=== PATIENT | male | born 1945 | race African-American/Black ===

== ENCOUNTER 2020-01-28 14:48 | Inpatient (IN) | payer MEDICARE ==
[~2020-01-28] VITALS: Ht 172.7 cm; Wt 43.2 kg
[2020-01-28] MEDS ORDERED: ACETAMINOPHEN 325MG TABLET PO STA (15:15)
[2020-01-28] MEDS ORDERED: SODIUM CHLORIDE 0.9% 1,000 ML IV ONE (15:15)
[2020-01-28] MEDS ORDERED: LEVOFLOXACIN 500MG PREMIX 100 ML IV ONE (16:00)
[2020-01-28 16:23] LABS: BASOPHILS % 1.7 % (0.0-2.0); HEMATOCRIT. 24.9 % (42.0-52.0); LYMPHOCYTES % 19.2 % (20.0-50.0); MEAN CORPUSCULAR HEMOGLOBIN 34.8 pg (28.0-32.0); MEAN CORPUSCULAR VOLUME 107.9 fL (80.0-94.0); MEAN PLATELET VOLUME 9.2 fl (7.4-10.4); MONOCYTES % 14.8 % (2.0-8.0); NEUTROPHILS % 62.3 % (40.0-76.0); PLATELET 96 x1000/uL (130-400); RED BLOOD CELL COUNT 2.31 mill/uL (4.7-6.1); RED CELL DISTRIBUTION WIDTH 16.5 % (11.6-14.6)
[2020-01-28 16:30] LABS: CHLORIDE 133 mEq/L (98-107)
[2020-01-28] MEDS ORDERED: DEXTROSE 50% WATER 50ML SYRINGE IV ONE ×3 (16:30→16:45)
[2020-01-28 16:35] LABS: ETHANOL BLOOD < 10 mg/dL
[2020-01-28 16:36] LABS: C REACTIVE PROTEIN QUANT 2.6 mg/L (0.0-3.0)
[2020-01-28 16:39] LABS: CREATINE KINASE 387 IU/L (39-308)
[2020-01-28 16:42] LABS: D-DIMER 22.79 mg/L FEU (<0.50); INR 1.1
[2020-01-28] MEDS ORDERED: SODIUM BICARBONATE 8.4% 1 MEQ/ML 50ML SYR IV ONE (16:45)
[2020-01-28] MEDS ORDERED: CALCIUM CHLORIDE 1GM/10ML SYR IV ONE (16:45)
[2020-01-28] MEDS ORDERED: INSULIN REGULAR (HUMULIN R) 300UNITS/3ML IV ONE (16:45)
[2020-01-28 17:03] LABS: BG BASE EXCESS -19.5 mmol/L (-2.0-2.0); BG CARBOXYHEMOGLOBIN 0.3 % (0.5-1.5); BG DEOXYHEMOGLOBIN 4.4 % (0.0-5.0); BG FRACTION INSPIRED OXYGEN 21; BG HCO3 ACT 6.6 mmol/L (22.0-26.0); BG METHEMOGLOBIN 0.6 % (0.0-1.5); BG OXYGEN SATURATION 95.6 % (92.0-98.5); BG OXYHEMOGLOBIN 94.7 % (94.0-97.0); BG PCO2 17.1 mmHg (35.0-45.0); BG PH 7.203 (7.350-7.450); BG PO2 93.7 mmHg (75.0-100.0); BG SAMPLE SITE RIGHT RADIAL; BG TOTAL HEMOGLOBIN 8.1 g/dL (12.0-18.0); BG VENT MODE ROOM AIR
[2020-01-28] MEDS ORDERED: GUAIFENESIN 200MG/10ML SUGAR FREE UDC PO PRN (18:15)
[2020-01-28] MEDS ORDERED: DOCUSATE SODIUM 100MG CAPSULE PO PRN (18:15)
[2020-01-28] MEDS ORDERED: DIPHENHYDRAMINE 50MG/ML VIAL IV PRN (18:15)
[2020-01-28] MEDS ORDERED: MORPHINE SULFATE 2 MG/ML CPJ (NOT FOR IM USE) IV PRN (18:15)
[2020-01-28] MEDS ORDERED: IPRATROPIUM/ALBUTEROL 0.5-3(2.5)MG/3ML NEB HHN PRN (18:15)
[2020-01-28] MEDS ORDERED: ONDANSETRON HCL 4MG/2ML INJ IV PRN (18:15)
[2020-01-28] MEDS ORDERED: HYDROCODONE/ACETAMINOPHEN 10/325MG TABLET PO PRN (18:15)
[2020-01-28] MEDS ORDERED: MAGNESIUM/ALUMINUM HYDROXIDE/SIMETHICONE 30ML UDC PO PRN (18:15)
[2020-01-28] MEDS ORDERED: ACETAMINOPHEN 325MG TABLET PO PRN (18:15)
[2020-01-28] MEDS ORDERED: LORAZEPAM 2MG/ML CPJ IV PRN (18:15)
[2020-01-28] MEDS ORDERED: AZITHROMYCIN 500 MG in DEXT 5% WATER 250 ML IV SCH (19:00)
[2020-01-28] MEDS ORDERED: CEFTRIAXONE 1 G PREMIX 50 ML IV SCH (19:00)
[2020-01-28] MEDS: HYDRALAZINE 20MG/ML VIAL IV PRN (20:02)
[2020-01-28] MEDS: ENOXAPARIN 30MG/0.3ML SYR SUBCUT SCH (21:48)
[2020-01-28 21:59] LABS: CLARITY URINE CLEAR (CLEAR); COLOR URINE ORANGE (YELLOW); KETONES URINE NEGATIVE (NEGATIVE); LEUKOCYTE ESTERASE URINE TRACE (NEGATIVE); NITRITE URINE NEGATIVE (NEGATIVE); OCCULT BLOOD URINE 3+ (NEGATIVE); PH URINE 7.5 (4.5-8.0); PROTEIN URINE 3+ (NEGATIVE); SPECIFIC GRAVITY URINE 1.015 (1.005-1.030); UROBILINOGEN URINE 0.2 E.U./dL (0.2-1.0)
[2020-01-28] MEDS: SODIUM CHLORIDE 0.9% INJ 3ML FLUSH IVF SCH (22:23)
[2020-01-29] VITALS (84 sets, daily range): BP systolic 85–199; BP diastolic 38–170
[2020-01-29 05:55] LABS: BASOPHILS % 0.5 % (0.0-2.0); CHLORIDE 134 mEq/L (98-107); EOSINOPHILS % 0.2 % (0.0-5.0); HEMATOCRIT. 24.7 % (42.0-52.0); HEMOGLOBIN. 7.9 g/dL (14.0-18.0); LYMPHOCYTES % 10.5 % (20.0-50.0); MEAN CORPUSCULAR HEMOGLOBIN 34.9 pg (28.0-32.0); MEAN CORPUSCULAR VOLUME 109.1 fL (80.0-94.0); MEAN PLATELET VOLUME 9.3 fl (7.4-10.4); MONOCYTES % 13.9 % (2.0-8.0); NEUTROPHILS % 74.9 % (40.0-76.0); PLATELET 88 x1000/uL (130-400); RED BLOOD CELL COUNT 2.27 mill/uL (4.7-6.1); RED CELL DISTRIBUTION WIDTH 16.3 % (11.6-14.6)
[2020-01-29] MEDS: SODIUM CHLORIDE 0.9% INJ 3ML FLUSH IVF SCH ×3 (06:00→21:09)
[2020-01-29] MEDS ORDERED: ENOXAPARIN 30MG/0.3ML SYR SUBCUT SCH (09:00)
[2020-01-29 09:25] LABS: *AMPHETAMINES SCREEN URINE NEGATIVE (NEGATIVE); *BARBITURATES SCREEN URINE NEGATIVE (NEGATIVE); *BENZODIAZEPINES SCREEN URINE NEGATIVE (NEGATIVE)
[2020-01-29 09:26] LABS: *COCAINE SCREEN URINE NEGATIVE (NEGATIVE); CANNABINOID URINE SCREEN NEGATIVE (NEGATIVE); METHADONE URINE SCREEN NEGATIVE (NEGATIVE); OPIATES URINE SCREEN NEGATIVE (NEGATIVE); PHENCYCLIDINE URINE SCREEN NEGATIVE (NEGATIVE)
[2020-01-29] MEDS ORDERED: SODIUM BICARBONATE 100 MEQ in DEXTROSE 5% WATER 1,000 ML IV SCH (10:00)
[2020-01-29 10:49] LABS: CREATINE KINASE 553 IU/L (39-308)
[2020-01-29] MEDS: CEFTRIAXONE 1 G PREMIX 50 ML IV SCH (13:51)
[2020-01-29] MEDS ORDERED: AZITHROMYCIN 500 MG in DEXT 5% WATER 250 ML IV SCH (14:00)
[2020-01-29 14:21] LABS: CREATINE KINASE MB FRACTION 22.8 ng/mL (0.5-3.6); T4 FREE 1.04 ng/dL (0.76-1.46)
[2020-01-29] MEDS: ENOXAPARIN 30MG/0.3ML SYR SUBCUT SCH (21:09)
[2020-01-29 23:18] LABS: CREATINE KINASE MB FRACTION 17.1 ng/mL (0.5-3.6)
[2020-01-29] MEDS: CLONIDINE 0.1MG TABLET PO PRN (23:18)
[2020-01-30] VITALS (49 sets, daily range): BP systolic 103–190; BP diastolic 42–116
[2020-01-30] MEDS: HYDRALAZINE 20MG/ML VIAL IV PRN (02:18)
[2020-01-30 04:59] LABS: PHOSPHORUS 4.3 mg/dL (2.5-4.9)
[2020-01-30 05:04] LABS: CREATINE KINASE MB FRACTION 14.5 ng/mL (0.5-3.6)
[2020-01-30 05:17] LABS: MEAN CORPUSCULAR HEMOGLOBIN 35.3 pg (28.0-32.0); MEAN CORPUSCULAR VOLUME 104.2 fL (80.0-94.0); MEAN PLATELET VOLUME 9.9 fl (7.4-10.4); PLATELET 71 x1000/uL (130-400); RED BLOOD CELL COUNT 1.98 mill/uL (4.7-6.1); RED CELL DISTRIBUTION WIDTH 15.5 % (11.6-14.6)
[2020-01-30 05:24] LABS: HEMATOCRIT. 20.7 % (42.0-52.0)
[2020-01-30] MEDS: SODIUM CHLORIDE 0.9% INJ 3ML FLUSH IVF SCH ×3 (06:00→22:14)
[2020-01-30] MEDS ORDERED: KCL 10MEQ/50ML PREMIX 50 ML IV ONE (06:30)
[2020-01-30] MEDS ORDERED: MAGNESIUM 2 G PREMIX 50 ML IV ONE (06:30)
[2020-01-30] MEDS ORDERED: POTASSIUM CHLORIDE 20MEQ/PACKET PO NR (06:30)
[2020-01-30 07:13] LABS: NUCLEATED RED BLOOD CELLS 1 /100 WBC
[2020-01-30 07:14] LABS: PLATELET ESTIMATE DECREASED
[2020-01-30] MEDS ORDERED: MAGNESIUM 4 G PREMIX 100 ML IV NR (08:00)
[2020-01-30] MEDS: DEXT 5%/0.45% NACL 1000ML 1,000 ML IV SCH ×2 (08:37→22:15)
[2020-01-30] MEDS: THIAMINE HCL 100MG TABLET PO SCH (08:38)
[2020-01-30] MEDS: FOLIC ACID/VITAMIN B COMP W-C TABLET PO SCH (08:39)
[2020-01-30] MEDS: FOLIC ACID 1MG TABLET PO SCH (08:39)
[2020-01-30] MEDS: AZITHROMYCIN 500 MG TABLET PO SCH (08:48)
[2020-01-30] MEDS: CEFTRIAXONE 1 G PREMIX 50 ML IV SCH (18:29)
[2020-01-30 20:14] LABS: INR 1.1; PROTHROMBIN TIME 11.4 sec (9.6-11.0)
[2020-01-30] MEDS: ENOXAPARIN 30MG/0.3ML SYR SUBCUT SCH (21:00)
[2020-01-31] VITALS: BP 137/79
[2020-01-31 04:00] VITALS: BP 147/87
[2020-01-31] MEDS: SODIUM CHLORIDE 0.9% INJ 3ML FLUSH IVF SCH ×3 (06:14→21:53)
[2020-01-31 07:29] LABS: BASOPHILS % 0.3 % (0.0-2.0); EOSINOPHILS % 2.5 % (0.0-5.0); HEMATOCRIT. 24.6 % (42.0-52.0); HEMOGLOBIN. 8.4 g/dL (14.0-18.0); LYMPHOCYTES % 27.5 % (20.0-50.0); MEAN CORPUSCULAR HEMOGLOBIN 34.9 pg (28.0-32.0); MEAN CORPUSCULAR VOLUME 102.5 fL (80.0-94.0); MONOCYTES % 14.6 % (2.0-8.0); NEUTROPHILS % 55.1 % (40.0-76.0); PLATELET 77 x1000/uL (130-400); RED CELL DISTRIBUTION WIDTH 16.4 % (11.6-14.6)
[2020-01-31 08:00] VITALS: BP 166/91
[2020-01-31] MEDS: THIAMINE HCL 100MG TABLET PO SCH (09:06)
[2020-01-31] MEDS: AZITHROMYCIN 500 MG TABLET PO SCH (09:06)
[2020-01-31] MEDS: FOLIC ACID/VITAMIN B COMP W-C TABLET PO SCH (09:06)
[2020-01-31] MEDS: FOLIC ACID 1MG TABLET PO SCH (09:06)
[2020-01-31 12:00] VITALS: BP 151/66
[2020-01-31] MEDS: CEFTRIAXONE 1 G PREMIX 50 ML IV SCH (13:19)
[2020-01-31 14:11] LABS: ANTI-NUCLEAR ANTIBODIES DIRECT Negative (Negative)
[2020-01-31] MEDS: DEXT 5%/0.45% NACL 1000ML 1,000 ML IV SCH (14:36)
[2020-01-31 16:00] VITALS: BP 118/62
[2020-01-31 20:00] VITALS: BP 144/73
[2020-01-31 20:37] LABS: HEPATITIS B SURFACE AB < 3.1 mIU/mL
[2020-01-31 20:48] LABS: HEPATITIS B SURFACE ANTIGEN NEGATIVE
[2020-01-31] MEDS: ENOXAPARIN 30MG/0.3ML SYR SUBCUT SCH (21:00)
[2020-01-31 21:18] LABS: HEPATITIS A AB IGM NEGATIVE (NEGATIVE)
[2020-01-31] MEDS: EPOETIN ALFA 10000UNITS/ML VIAL SUBCUT SCH (21:53)
[2020-02-01] VITALS: BP 161/80
[2020-02-01] MEDS: CLONIDINE 0.1MG TABLET PO PRN (01:51)
[2020-02-01 04:00] VITALS: BP 154/81
[2020-02-01] MEDS: SODIUM CHLORIDE 0.9% INJ 3ML FLUSH IVF SCH ×3 (06:26→21:34)
[2020-02-01 07:30] LABS: HEMATOCRIT. 22.9 % (42.0-52.0); HEMOGLOBIN. 7.8 g/dL (14.0-18.0); MEAN CORPUSCULAR HEMOGLOBIN 34.7 pg (28.0-32.0); MEAN CORPUSCULAR VOLUME 101.6 fL (80.0-94.0); MEAN PLATELET VOLUME 9.6 fl (7.4-10.4); PLATELET 65 x1000/uL (130-400); RED BLOOD CELL COUNT 2.25 mill/uL (4.7-6.1); RED CELL DISTRIBUTION WIDTH 16.3 % (11.6-14.6)
[2020-02-01 08:00] VITALS: BP 158/75
[2020-02-01] MEDS: FOLIC ACID/VITAMIN B COMP W-C TABLET PO SCH (08:52)
[2020-02-01] MEDS: AZITHROMYCIN 500 MG TABLET PO SCH (08:52)
[2020-02-01] MEDS: FOLIC ACID 1MG TABLET PO SCH (08:52)
[2020-02-01] MEDS: DEXT 5%/0.45% NACL 1000ML 1,000 ML IV SCH (08:52)
[2020-02-01] MEDS: THIAMINE HCL 100MG TABLET PO SCH (08:52)
[2020-02-01 12:00] VITALS: BP 136/69
[2020-02-01 12:33] LABS: PLATELET ESTIMATE DECREASED
[2020-02-01] MEDS: CEFTRIAXONE 1 G PREMIX 50 ML IV SCH (12:36)
[2020-02-01 16:00] VITALS: BP 147/75
[2020-02-01 20:00] VITALS: BP 136/73
[2020-02-01] MEDS: ENOXAPARIN 30MG/0.3ML SYR SUBCUT SCH (20:22)
[2020-02-02] VITALS: BP 148/79
[2020-02-02 04:00] VITALS: BP 171/93
[2020-02-02] MEDS: DEXT 5%/0.45% NACL 1000ML 1,000 ML IV SCH ×2 (04:05→17:38)
[2020-02-02] MEDS: SODIUM CHLORIDE 0.9% INJ 3ML FLUSH IVF SCH ×3 (06:18→20:38)
[2020-02-02 06:50] LABS: HEMATOCRIT. 23.1 % (42.0-52.0); HEMOGLOBIN. 7.9 g/dL (14.0-18.0); MEAN CORPUSCULAR HEMOGLOBIN 34.9 pg (28.0-32.0); MEAN CORPUSCULAR VOLUME 102.6 fL (80.0-94.0); MEAN PLATELET VOLUME 9.5 fl (7.4-10.4); PLATELET 81 x1000/uL (130-400); RED BLOOD CELL COUNT 2.25 mill/uL (4.7-6.1); RED CELL DISTRIBUTION WIDTH 15.6 % (11.6-14.6)
[2020-02-02 08:00] VITALS: BP 152/58
[2020-02-02] MEDS: THIAMINE HCL 100MG TABLET PO SCH (09:01)
[2020-02-02] MEDS: AZITHROMYCIN 500 MG TABLET PO SCH (09:01)
[2020-02-02] MEDS: FOLIC ACID 1MG TABLET PO SCH (09:01)
[2020-02-02] MEDS: FOLIC ACID/VITAMIN B COMP W-C TABLET PO SCH (09:01)
[2020-02-02 12:00] VITALS: BP 140/68
[2020-02-02 13:10] LABS: PLATELET ESTIMATE DECREASED
[2020-02-02] MEDS: CEFTRIAXONE 1 G PREMIX 50 ML IV SCH (13:17)
[2020-02-02 16:00] VITALS: BP 150/92
[2020-02-02] MEDS: LOSARTAN POTASSIUM 25 MG TABLET PO SCH (17:38)
[2020-02-02 20:00] VITALS: BP 163/79
[2020-02-02] MEDS: CARVEDILOL 3.125 MG TABLET PO SCH (20:37)
[2020-02-02] MEDS: ENOXAPARIN 30MG/0.3ML SYR SUBCUT SCH (20:38)
[2020-02-03] VITALS (13 sets, daily range): BP systolic 114–187; BP diastolic 60–100
[2020-02-03] MEDS: DEXT 5%/0.45% NACL 1000ML 1,000 ML IV SCH (04:45)
[2020-02-03] MEDS: SODIUM CHLORIDE 0.9% INJ 3ML FLUSH IVF SCH ×3 (06:17→22:17)
[2020-02-03 06:43] LABS: HEMATOCRIT. 25.3 % (42.0-52.0); HEMOGLOBIN. 8.6 g/dL (14.0-18.0); MEAN CORPUSCULAR VOLUME 102.9 fL (80.0-94.0); MEAN PLATELET VOLUME 9.6 fl (7.4-10.4); PLATELET 99 x1000/uL (130-400); RED BLOOD CELL COUNT 2.46 mill/uL (4.7-6.1); RED CELL DISTRIBUTION WIDTH 15.5 % (11.6-14.6)
[2020-02-03] MEDS ORDERED: LIDOCAINE HCL 1% 20ML VIAL (Pyxis) INJ ONE (08:07)
[2020-02-03] MEDS ORDERED: SODIUM BICARBONATE 4% (2.4MEQ) 5ML VIAL IV ONE (08:07)
[2020-02-03] MEDS ORDERED: FENTANYL CITRATE/PF 50MCG/ML 2ML VIAL ONE (08:29)
[2020-02-03] MEDS: THIAMINE HCL 100MG TABLET PO SCH (10:42)
[2020-02-03] MEDS: FOLIC ACID/VITAMIN B COMP W-C TABLET PO SCH (10:42)
[2020-02-03] MEDS: FOLIC ACID 1MG TABLET PO SCH (10:42)
[2020-02-03] MEDS: CARVEDILOL 3.125 MG TABLET PO SCH ×2 (10:43→22:14)
[2020-02-03] MEDS: LOSARTAN POTASSIUM 25 MG TABLET PO SCH (10:43)
[2020-02-03] MEDS ORDERED: HEPARIN SODIUM 1,000 UNIT/1ML VIAL IV NR (11:45)
[2020-02-03 14:04] LABS: PLATELET ESTIMATE DECREASED
[2020-02-03] MEDS: ENOXAPARIN 30MG/0.3ML SYR SUBCUT SCH (21:00)
[2020-02-03] MEDS: EPOETIN ALFA 10000UNITS/ML VIAL SUBCUT SCH (22:17)
[2020-02-04] VITALS: BP 156/79
[2020-02-04] MEDS: DEXT 5%/0.45% NACL 1000ML 1,000 ML IV SCH ×2 (03:37→20:43)
[2020-02-04 04:00] VITALS: BP 172/92
[2020-02-04 06:59] LABS: HEMATOCRIT. 23.9 % (42.0-52.0); HEMOGLOBIN. 8.1 g/dL (14.0-18.0); MEAN CORPUSCULAR HEMOGLOBIN 35.1 pg (28.0-32.0); MEAN CORPUSCULAR VOLUME 103.9 fL (80.0-94.0); MEAN PLATELET VOLUME 9.2 fl (7.4-10.4); PLATELET 87 x1000/uL (130-400); RED CELL DISTRIBUTION WIDTH 15.7 % (11.6-14.6)
[2020-02-04 08:00] VITALS: BP 189/103
[2020-02-04] MEDS: FOLIC ACID/VITAMIN B COMP W-C TABLET PO SCH (09:06)
[2020-02-04] MEDS: CARVEDILOL 3.125 MG TABLET PO SCH ×2 (09:06→20:43)
[2020-02-04] MEDS: THIAMINE HCL 100MG TABLET PO SCH (09:07)
[2020-02-04] MEDS: FOLIC ACID 1MG TABLET PO SCH (09:07)
[2020-02-04] MEDS: LOSARTAN POTASSIUM 50 MG TABLET PO SCH (09:10)
[2020-02-04 11:50] LABS: PLATELET ESTIMATE DECREASED
[2020-02-04 11:53] VITALS: BP 163/75
[2020-02-04] MEDS: SODIUM CHLORIDE 0.9% INJ 3ML FLUSH IVF SCH ×2 (13:00→22:11)
[2020-02-04 16:00] VITALS: BP 153/66
[2020-02-04 20:00] VITALS: BP 150/74
[2020-02-04] MEDS: ENOXAPARIN 30MG/0.3ML SYR SUBCUT SCH (20:46)
[2020-02-05] VITALS: BP 169/90
[2020-02-05 04:00] VITALS: BP 147/80
[2020-02-05] MEDS: SODIUM CHLORIDE 0.9% INJ 3ML FLUSH IVF SCH ×2 (05:43→14:46)
[2020-02-05 07:10] LABS: HEMATOCRIT. 21.7 % (42.0-52.0); HEMOGLOBIN. 7.3 g/dL (14.0-18.0); MEAN CORPUSCULAR HEMOGLOBIN 34.9 pg (28.0-32.0); MEAN CORPUSCULAR VOLUME 103.8 fL (80.0-94.0); MEAN PLATELET VOLUME 9.8 fl (7.4-10.4); PLATELET 100 x1000/uL (130-400); RED BLOOD CELL COUNT 2.09 mill/uL (4.7-6.1); RED CELL DISTRIBUTION WIDTH 15.9 % (11.6-14.6)
[2020-02-05 08:00] VITALS: BP 193/107
[2020-02-05] MEDS: FOLIC ACID/VITAMIN B COMP W-C TABLET PO SCH (08:31)
[2020-02-05] MEDS: FOLIC ACID 1MG TABLET PO SCH (08:31)
[2020-02-05] MEDS: THIAMINE HCL 100MG TABLET PO SCH (08:31)
[2020-02-05] MEDS: CARVEDILOL 3.125 MG TABLET PO SCH (09:00)
[2020-02-05] MEDS: LOSARTAN POTASSIUM 50 MG TABLET PO SCH (09:00)
[2020-02-05 12:00] VITALS: BP_SYST 139; BP_SYST 169; BP_DIAS 73; BP_DIAS 87
[2020-02-05 14:24] LABS: PLATELET ESTIMATE SLIGHTLY DECREASED
[2020-02-05] MEDS: DEXT 5%/0.45% NACL 1000ML 1,000 ML IV SCH (14:49)
[2020-02-05 16:00] VITALS: BP 156/66
[2020-02-05] MEDS: HYDRALAZINE 20MG/ML VIAL IV PRN (16:35)
[2020-02-05 17:00] VITALS: BP 156/66
== END 2020-02-05 19:56 | DRG 871 ==
LOC: ER 14:48 → MICUSO 16:47 → EDBEDREQ 16:50 → EDBEDREQSVC 16:50 → MICUSO 01-29 01:45 → 8WST 01-30 12:25
PROVIDERS: ADMIT Internal Medicine; ATTEND Internal Medicine
PROC: 06H033Z Insertion of Infusion Device into Inferior Vena Cava, Percutaneous Approach (ICD-10-PCS; principal; 2020-01-28)
PROC: B549ZZA Ultrasonography of Inferior Vena Cava, Guidance (ICD-10-PCS; 2020-01-28)
PROC: 5A1D70Z Performance of Urinary Filtration, Intermittent, Less than 6 Hours Per Day (ICD-10-PCS; 2020-01-28)
PROC: 5A1D70Z Performance of Urinary Filtration, Intermittent, Less than 6 Hours Per Day (ICD-10-PCS; 2020-01-29)
PROC: 30233N1 Transfusion of Nonautologous Red Blood Cells into Peripheral Vein, Percutaneous Approach (ICD-10-PCS; 2020-01-30)
PROC: 5A1D70Z Performance of Urinary Filtration, Intermittent, Less than 6 Hours Per Day (ICD-10-PCS; 2020-01-31)
PROC: 0JH63XZ Insertion of Tunneled Vascular Access Device into Chest Subcutaneous Tissue and Fascia, Percutaneous Approach (ICD-10-PCS; 2020-02-03)
PROC: 02HV33Z Insertion of Infusion Device into Superior Vena Cava, Percutaneous Approach (ICD-10-PCS; 2020-02-03)
PROC: B518ZZA Fluoroscopy of Superior Vena Cava, Guidance (ICD-10-PCS; 2020-02-03)
PROC: B548ZZA Ultrasonography of Superior Vena Cava, Guidance (ICD-10-PCS; 2020-02-03)
PROC: 5A1D70Z Performance of Urinary Filtration, Intermittent, Less than 6 Hours Per Day (ICD-10-PCS; 2020-02-03)
PROC: 5A1D70Z Performance of Urinary Filtration, Intermittent, Less than 6 Hours Per Day (ICD-10-PCS; 2020-02-05)
DX: A41.9 Sepsis, unspecified organism (principal); J96.00 Acute respiratory failure, unspecified whether with hypoxia or hypercapnia; J18.9 Pneumonia, unspecified organism; T67.01XA Heatstroke and sunstroke, initial encounter; E46 Unspecified protein-calorie malnutrition; D61.818 Other pancytopenia; E87.0 Hyperosmolality and hypernatremia; G93.40 Encephalopathy, unspecified; Z68.1 Body mass index [BMI] 19.9 or less, adult; E87.1 Hypo-osmolality and hyponatremia; N17.9 Acute kidney failure, unspecified; E87.5 Hyperkalemia; R32 Unspecified urinary incontinence; E83.51 Hypocalcemia; R31.9 Hematuria, unspecified; L89.226 Pressure-induced deep tissue damage of left hip; D64.9 Anemia, unspecified; X58.XXXA Exposure to other specified factors, initial encounter; I51.7 Cardiomegaly; I12.9 Hypertensive chronic kidney disease with stage 1 through stage 4 chronic kidney disease, or unspecified chronic kidney disease; N18.9 Chronic kidney disease, unspecified; R15.9 Full incontinence of feces; Z03.818 Encounter for observation for suspected exposure to other biological agents ruled out; X30.XXXA Exposure to excessive natural heat, initial encounter; Y93.89 Activity, other specified; Y92.89 Other specified places as the place of occurrence of the external cause; Y99.8 Other external cause status
CPT/HCPCS: 36415; 36558; 36589; 36600; 70551; 71045; 76937; 77001; 80048; 80053; 80061; 80305; 80320; 81003; 82270; 82375; 82550; 82553; 82570; 82728; 82805; 82962; 83036; 83605; 83615; 83735; 83880; 84100; 84145; 84156; 84439; 84443; 84484; 85014; 85018; 85025; 85049; 85379; 85384; 86038; 86140; 86160; 86705; 86706; 86709; 86803; 86850; 86900; 86920; 87340; 93005; 93306; 97116; 97162; 97165; 99291; C1750; C1752; C1769; J0360; J0456; J0696; J0885; J1642; J1644; J1650; J1815; J1956; J3010; J3475; J3490; J7030; J7060; J7070; P9016; G0480; U0003-CS

== ENCOUNTER 2020-02-05 19:50 | Inpatient (IN) | payer MEDICARE ==
[~2020-02-05] VITALS: Ht 172.7 cm; Wt 43.7 kg
[2020-02-05 19:50] VITALS: BP 156/72
[2020-02-05 20:00] VITALS: BP_SYST 118; BP_SYST 156; BP_DIAS 75; BP_DIAS 84
[2020-02-05] MEDS ORDERED: ONDANSETRON HCL 4MG/2ML INJ IV PRN (21:30)
[2020-02-05] MEDS ORDERED: MAGNESIUM/ALUMINUM HYDROXIDE/SIMETHICONE 30ML UDC PO PRN (21:30)
[2020-02-05] MEDS ORDERED: GUAIFENESIN 200MG/10ML SUGAR FREE UDC PO PRN (21:30)
[2020-02-05] MEDS ORDERED: IPRATROPIUM/ALBUTEROL 0.5-3(2.5)MG/3ML NEB HHN PRN (21:30)
[2020-02-05] MEDS ORDERED: CLONIDINE 0.1MG TABLET PO PRN (21:30)
[2020-02-05] MEDS ORDERED: DOCUSATE SODIUM 100MG CAPSULE PO PRN (21:30)
[2020-02-05] MEDS ORDERED: ACETAMINOPHEN 325MG TABLET PO PRN (21:30)
[2020-02-05] MEDS ORDERED: HYDRALAZINE 20MG/ML VIAL IV PRN ×2 (21:30→22:30)
[2020-02-05] MEDS ORDERED: DIPHENHYDRAMINE 50MG/ML VIAL IV PRN ×2 (21:30→22:30)
[2020-02-06] MEDS: EPOETIN ALFA 10000UNITS/ML VIAL SUBCUT SCH (00:28)
[2020-02-06] MEDS: DEXT 5%/0.45% NACL 1000ML 1,000 ML IV SCH ×2 (00:28→15:10)
[2020-02-06] MEDS: SODIUM CHLORIDE 0.9% INJ 3ML FLUSH IVF SCH ×3 (06:38→21:22)
[2020-02-06 08:00] VITALS: BP 187/106
[2020-02-06 08:36] LABS: HEMATOCRIT. 22.4 % (42.0-52.0); HEMOGLOBIN. 7.5 g/dL (14.0-18.0); MEAN CORPUSCULAR VOLUME 104.5 fL (80.0-94.0); MEAN PLATELET VOLUME 9.8 fl (7.4-10.4); PLATELET 99 x1000/uL (130-400); RED BLOOD CELL COUNT 2.15 mill/uL (4.7-6.1); RED CELL DISTRIBUTION WIDTH 15.8 % (11.6-14.6)
[2020-02-06] MEDS: ENOXAPARIN 30MG/0.3ML SYR SUBCUT SCH (09:00)
[2020-02-06] MEDS: FOLIC ACID/VITAMIN B COMP W-C TABLET PO SCH (09:21)
[2020-02-06] MEDS: THIAMINE HCL 100MG TABLET PO SCH (09:21)
[2020-02-06] MEDS: FOLIC ACID 1MG TABLET PO SCH (09:22)
[2020-02-06] MEDS: DOCUSATE SODIUM 100MG CAPSULE PO SCH ×2 (09:22→18:31)
[2020-02-06] MEDS: LOSARTAN POTASSIUM 50 MG TABLET PO SCH (09:22)
[2020-02-06] MEDS: CARVEDILOL 3.125 MG TABLET PO SCH ×2 (09:23→21:21)
[2020-02-06 10:20] VITALS: BP 161/90
[2020-02-06] MEDS: HYDRALAZINE HCL 50MG TABLET PO SCH ×3 (10:20→23:42)
[2020-02-06 12:54] LABS: PLATELET ESTIMATE DECREASED
[2020-02-06 18:33] VITALS: BP 177/75
[2020-02-06 20:00] VITALS: BP 138/63
[2020-02-07] MEDS: HYDRALAZINE HCL 50MG TABLET PO SCH ×3 (05:36→21:14)
[2020-02-07] MEDS: SODIUM CHLORIDE 0.9% INJ 3ML FLUSH IVF SCH ×3 (05:37→21:14)
[2020-02-07] MEDS: DEXT 5%/0.45% NACL 1000ML 1,000 ML IV SCH ×2 (07:50→23:32)
[2020-02-07 08:00] VITALS: BP 127/61
[2020-02-07 09:00] VITALS: BP 90/40
[2020-02-07] MEDS: CARVEDILOL 3.125 MG TABLET PO SCH ×2 (09:00→20:41)
[2020-02-07] MEDS: ENOXAPARIN 30MG/0.3ML SYR SUBCUT SCH (09:00)
[2020-02-07] MEDS: LOSARTAN POTASSIUM 50 MG TABLET PO SCH ×2 (09:00→09:34)
[2020-02-07] MEDS: FOLIC ACID/VITAMIN B COMP W-C TABLET PO SCH (09:34)
[2020-02-07] MEDS: DOCUSATE SODIUM 100MG CAPSULE PO SCH ×2 (09:34→17:03)
[2020-02-07] MEDS: FOLIC ACID 1MG TABLET PO SCH (09:35)
[2020-02-07] MEDS: THIAMINE HCL 100MG TABLET PO SCH (09:35)
[2020-02-07 10:00] VITALS: BP 100/40
[2020-02-07 10:04] LABS: HEMATOCRIT. 23.3 % (42.0-52.0); HEMOGLOBIN. 8.1 g/dL (14.0-18.0); MEAN CORPUSCULAR HEMOGLOBIN 35.3 pg (28.0-32.0); MEAN CORPUSCULAR VOLUME 102.2 fL (80.0-94.0); MEAN PLATELET VOLUME 9.4 fl (7.4-10.4); PLATELET 124 x1000/uL (130-400); RED BLOOD CELL COUNT 2.28 mill/uL (4.7-6.1); RED CELL DISTRIBUTION WIDTH 15.2 % (11.6-14.6)
[2020-02-07 11:04] LABS: PLATELET ESTIMATE SLIGHTLY DECREASED
[2020-02-07 14:07] VITALS: BP 120/54
[2020-02-07] MEDS ORDERED: HYDRALAZINE 10 MG in SODIUM CHLORIDE 0.9% 50 ML IV PRN (15:15)
[2020-02-07 16:00] VITALS: BP_SYST 106; BP_SYST 107; BP_DIAS 50; BP_DIAS 56; BP_DIAS 70
[2020-02-07 20:00] VITALS: BP 135/73
[2020-02-07] MEDS: EPOETIN ALFA 10000UNITS/ML VIAL SUBCUT SCH (20:44)
[2020-02-07] MEDS ORDERED: HEPARIN SODIUM 1,000 UNIT/1ML VIAL IV NR (21:00)
[2020-02-08] MEDS: SODIUM CHLORIDE 0.9% INJ 3ML FLUSH IVF SCH ×3 (06:01→21:47)
[2020-02-08] MEDS: HYDRALAZINE HCL 50MG TABLET PO SCH ×3 (06:01→21:45)
[2020-02-08 08:00] VITALS: BP 122/56
[2020-02-08] MEDS: LOSARTAN POTASSIUM 50 MG TABLET PO SCH (09:29)
[2020-02-08] MEDS: FOLIC ACID 1MG TABLET PO SCH (09:29)
[2020-02-08] MEDS: THIAMINE HCL 100MG TABLET PO SCH (09:29)
[2020-02-08] MEDS: FOLIC ACID/VITAMIN B COMP W-C TABLET PO SCH (09:29)
[2020-02-08] MEDS: DOCUSATE SODIUM 100MG CAPSULE PO SCH ×2 (09:29→17:00)
[2020-02-08] MEDS: CARVEDILOL 3.125 MG TABLET PO SCH ×2 (09:30→21:45)
[2020-02-08] MEDS: ENOXAPARIN 30MG/0.3ML SYR SUBCUT SCH (09:30)
[2020-02-08] MEDS: DEXT 5%/0.45% NACL 1000ML 1,000 ML IV SCH ×2 (17:10→23:11)
[2020-02-08 20:00] VITALS: BP 123/62
[2020-02-09] MEDS: HYDRALAZINE HCL 50MG TABLET PO SCH ×3 (05:57→22:00)
[2020-02-09] MEDS: SODIUM CHLORIDE 0.9% INJ 3ML FLUSH IVF SCH ×3 (05:59→22:00)
[2020-02-09 06:43] LABS: HEMOGLOBIN. 7.1 g/dL (14.0-18.0); MEAN CORPUSCULAR HEMOGLOBIN 35.9 pg (28.0-32.0); MEAN CORPUSCULAR VOLUME 104.4 fL (80.0-94.0); MEAN PLATELET VOLUME 9.1 fl (7.4-10.4); PLATELET 135 x1000/uL (130-400); RED BLOOD CELL COUNT 1.97 mill/uL (4.7-6.1); RED CELL DISTRIBUTION WIDTH 15.9 % (11.6-14.6)
[2020-02-09 07:12] LABS: HEMATOCRIT. 20.5 % (42.0-52.0)
[2020-02-09 08:20] VITALS: BP 141/56
[2020-02-09] MEDS: FOLIC ACID/VITAMIN B COMP W-C TABLET PO SCH (09:00)
[2020-02-09] MEDS: THIAMINE HCL 100MG TABLET PO SCH (09:00)
[2020-02-09] MEDS: LOSARTAN POTASSIUM 50 MG TABLET PO SCH (09:00)
[2020-02-09] MEDS: ENOXAPARIN 30MG/0.3ML SYR SUBCUT SCH (09:00)
[2020-02-09] MEDS: DOCUSATE SODIUM 100MG CAPSULE PO SCH ×2 (09:00→17:25)
[2020-02-09] MEDS: CARVEDILOL 3.125 MG TABLET PO SCH ×2 (09:00→21:00)
[2020-02-09] MEDS: FOLIC ACID 1MG TABLET PO SCH (09:00)
[2020-02-09 16:09] LABS: PLATELET ESTIMATE NORMAL
[2020-02-09 20:00] VITALS: BP 140/74
[2020-02-10] VITALS (9 sets, daily range): BP systolic 128–158; BP diastolic 65–87
[2020-02-10] MEDS: HYDRALAZINE HCL 50MG TABLET PO SCH ×3 (06:00→21:42)
[2020-02-10] MEDS: SODIUM CHLORIDE 0.9% INJ 3ML FLUSH IVF SCH ×3 (06:02→21:44)
[2020-02-10 06:25] LABS: HEMATOCRIT. 29.7 % (42.0-52.0); HEMOGLOBIN. 10.1 g/dL (14.0-18.0); MEAN CORPUSCULAR HEMOGLOBIN 33.7 pg (28.0-32.0); PLATELET 95 x1000/uL (130-400); RED CELL DISTRIBUTION WIDTH 19.1 % (11.6-14.6)
[2020-02-10] MEDS: LOSARTAN POTASSIUM 50 MG TABLET PO SCH (09:25)
[2020-02-10] MEDS: FOLIC ACID 1MG TABLET PO SCH (09:25)
[2020-02-10] MEDS: DOCUSATE SODIUM 100MG CAPSULE PO SCH ×2 (09:25→17:13)
[2020-02-10] MEDS: THIAMINE HCL 100MG TABLET PO SCH (09:25)
[2020-02-10] MEDS: FOLIC ACID/VITAMIN B COMP W-C TABLET PO SCH (09:25)
[2020-02-10] MEDS: CARVEDILOL 3.125 MG TABLET PO SCH ×2 (09:26→21:43)
[2020-02-10 14:15] LABS: PLATELET ESTIMATE DECREASED
[2020-02-10] MEDS ORDERED: IPRATROPIUM/ALBUTEROL 0.5-3(2.5)MG/3ML NEB HHN PRN (14:45)
[2020-02-10] MEDS: IPRATROPIUM/ALBUTEROL 0.5-3(2.5)MG/3ML NEB HHN SCH (20:04)
[2020-02-10] MEDS: EPOETIN ALFA 10000UNITS/ML VIAL SUBCUT SCH (21:44)
[2020-02-11] MEDS: IPRATROPIUM/ALBUTEROL 0.5-3(2.5)MG/3ML NEB HHN SCH ×4 (01:31→21:36)
[2020-02-11 03:00] VITALS: BP 132/70
[2020-02-11] MEDS: SODIUM CHLORIDE 0.9% INJ 3ML FLUSH IVF SCH ×2 (06:10→14:00)
[2020-02-11] MEDS: HYDRALAZINE HCL 50MG TABLET PO SCH ×3 (06:11→22:17)
[2020-02-11 07:22] LABS: HEMATOCRIT. 26.7 % (42.0-52.0); HEMOGLOBIN. 9.2 g/dL (14.0-18.0); MEAN CORPUSCULAR VOLUME 98.7 fL (80.0-94.0); MEAN PLATELET VOLUME 7.8 fl (7.4-10.4); PLATELET 77 x1000/uL (130-400); RED CELL DISTRIBUTION WIDTH 19.4 % (11.6-14.6)
[2020-02-11 08:02] VITALS: BP 154/67
[2020-02-11] MEDS: DOCUSATE SODIUM 100MG CAPSULE PO SCH ×2 (08:16→18:03)
[2020-02-11] MEDS: FOLIC ACID 1MG TABLET PO SCH (08:16)
[2020-02-11] MEDS: LOSARTAN POTASSIUM 50 MG TABLET PO SCH (08:16)
[2020-02-11] MEDS: FOLIC ACID/VITAMIN B COMP W-C TABLET PO SCH (08:16)
[2020-02-11] MEDS: THIAMINE HCL 100MG TABLET PO SCH (08:17)
[2020-02-11] MEDS: CARVEDILOL 3.125 MG TABLET PO SCH ×2 (08:18→20:57)
[2020-02-11 19:08] LABS: PLATELET ESTIMATE DECREASED
[2020-02-11 20:00] VITALS: BP 129/69
[2020-02-11] MEDS: BUDESONIDE 0.5MG/2ML NEB HHN SCH ×2 (21:11→21:40)
[2020-02-12] MEDS: IPRATROPIUM/ALBUTEROL 0.5-3(2.5)MG/3ML NEB HHN SCH ×4 (01:10→21:58)
[2020-02-12] MEDS: HYDRALAZINE HCL 50MG TABLET PO SCH ×3 (05:55→20:49)
[2020-02-12 08:06] VITALS: BP 169/94
[2020-02-12] MEDS: THIAMINE HCL 100MG TABLET PO SCH (08:56)
[2020-02-12] MEDS: CARVEDILOL 3.125 MG TABLET PO SCH ×2 (08:56→20:50)
[2020-02-12] MEDS: PREDNISONE 20MG TABLET PO SCH (08:56)
[2020-02-12] MEDS: FOLIC ACID 1MG TABLET PO SCH (08:56)
[2020-02-12] MEDS: AMLODIPINE 10MG TABLET PO SCH (08:57)
[2020-02-12] MEDS: DOCUSATE SODIUM 100MG CAPSULE PO SCH ×2 (08:57→16:09)
[2020-02-12] MEDS: FOLIC ACID/VITAMIN B COMP W-C TABLET PO SCH (08:57)
[2020-02-12] MEDS: LOSARTAN POTASSIUM 50 MG TABLET PO SCH (08:57)
[2020-02-12 13:34] LABS: BASOPHILS % 1.2 % (0.0-2.0); EOSINOPHILS % 0.9 % (0.0-5.0); HEMATOCRIT. 31.2 % (42.0-52.0); HEMOGLOBIN. 10.3 g/dL (14.0-18.0); LYMPHOCYTES % 14.3 % (20.0-50.0); MEAN CORPUSCULAR HEMOGLOBIN 33.4 pg (28.0-32.0); MEAN CORPUSCULAR VOLUME 101.1 fL (80.0-94.0); MEAN PLATELET VOLUME 8.2 fl (7.4-10.4); MONOCYTES % 5.3 % (2.0-8.0); NEUTROPHILS % 78.3 % (40.0-76.0); PLATELET 105 x1000/uL (130-400); RED BLOOD CELL COUNT 3.09 mill/uL (4.7-6.1); RED CELL DISTRIBUTION WIDTH 20.4 % (11.6-14.6)
[2020-02-12 20:00] VITALS: BP 135/73
[2020-02-12] MEDS: BUDESONIDE 0.5MG/2ML NEB HHN SCH (21:58)
[2020-02-13] MEDS: IPRATROPIUM/ALBUTEROL 0.5-3(2.5)MG/3ML NEB HHN SCH ×4 (01:27→21:34)
[2020-02-13] MEDS: HYDRALAZINE HCL 50MG TABLET PO SCH ×3 (06:00→22:29)
[2020-02-13 07:53] LABS: BASOPHILS % 0.7 % (0.0-2.0); EOSINOPHILS % 0.6 % (0.0-5.0); HEMATOCRIT. 28.4 % (42.0-52.0); HEMOGLOBIN. 9.6 g/dL (14.0-18.0); LYMPHOCYTES % 31.5 % (20.0-50.0); MEAN CORPUSCULAR HEMOGLOBIN 33.9 pg (28.0-32.0); MEAN CORPUSCULAR VOLUME 100.2 fL (80.0-94.0); MEAN PLATELET VOLUME 8.3 fl (7.4-10.4); MONOCYTES % 14.8 % (2.0-8.0); NEUTROPHILS % 52.4 % (40.0-76.0); PLATELET 110 x1000/uL (130-400); RED BLOOD CELL COUNT 2.84 mill/uL (4.7-6.1); RED CELL DISTRIBUTION WIDTH 19.5 % (11.6-14.6)
[2020-02-13 08:00] VITALS: BP 101/71
[2020-02-13] MEDS: LOSARTAN POTASSIUM 50 MG TABLET PO SCH (09:00)
[2020-02-13] MEDS: CARVEDILOL 3.125 MG TABLET PO SCH ×2 (09:00→21:13)
[2020-02-13] MEDS: AMLODIPINE 10MG TABLET PO SCH (09:00)
[2020-02-13] MEDS: FOLIC ACID/VITAMIN B COMP W-C TABLET PO SCH (10:01)
[2020-02-13] MEDS: DOCUSATE SODIUM 100MG CAPSULE PO SCH ×2 (10:01→16:36)
[2020-02-13] MEDS: PREDNISONE 20MG TABLET PO SCH (10:01)
[2020-02-13] MEDS: THIAMINE HCL 100MG TABLET PO SCH (10:01)
[2020-02-13] MEDS: FOLIC ACID 1MG TABLET PO SCH (10:02)
[2020-02-13] MEDS: BUDESONIDE 0.5MG/2ML NEB HHN SCH ×2 (17:10→21:36)
[2020-02-13 20:00] VITALS: BP 142/73
[2020-02-14] MEDS: IPRATROPIUM/ALBUTEROL 0.5-3(2.5)MG/3ML NEB HHN SCH ×2 (01:13→20:43)
[2020-02-14 06:19] LABS: HEMATOCRIT. 28.1 % (42.0-52.0); HEMOGLOBIN. 9.6 g/dL (14.0-18.0); MEAN CORPUSCULAR VOLUME 99.6 fL (80.0-94.0); MEAN PLATELET VOLUME 8.3 fl (7.4-10.4); PLATELET 91 x1000/uL (130-400); RED BLOOD CELL COUNT 2.82 mill/uL (4.7-6.1); RED CELL DISTRIBUTION WIDTH 19.8 % (11.6-14.6)
[2020-02-14] MEDS: HYDRALAZINE HCL 50MG TABLET PO SCH ×3 (06:28→22:47)
[2020-02-14 08:30] VITALS: BP 136/64
[2020-02-14] MEDS: PREDNISONE 20MG TABLET PO SCH (09:12)
[2020-02-14] MEDS: FOLIC ACID 1MG TABLET PO SCH (09:12)
[2020-02-14] MEDS: DOCUSATE SODIUM 100MG CAPSULE PO SCH ×2 (09:12→16:59)
[2020-02-14] MEDS: FOLIC ACID/VITAMIN B COMP W-C TABLET PO SCH (09:12)
[2020-02-14] MEDS: THIAMINE HCL 100MG TABLET PO SCH (09:12)
[2020-02-14] MEDS: AMLODIPINE 10MG TABLET PO SCH (09:13)
[2020-02-14] MEDS: LOSARTAN POTASSIUM 50 MG TABLET PO SCH (09:13)
[2020-02-14] MEDS: CARVEDILOL 3.125 MG TABLET PO SCH ×2 (09:13→21:28)
[2020-02-14 10:52] LABS: PLATELET ESTIMATE DECREASED
[2020-02-14 20:00] VITALS: BP 132/51
[2020-02-15] MEDS: IPRATROPIUM/ALBUTEROL 0.5-3(2.5)MG/3ML NEB HHN SCH ×4 (02:19→21:50)
[2020-02-15] MEDS: HYDRALAZINE HCL 50MG TABLET PO SCH ×3 (06:02→21:10)
[2020-02-15 08:00] VITALS: BP 140/57
[2020-02-15] MEDS: PREDNISONE 20MG TABLET PO SCH (09:00)
[2020-02-15] MEDS: AMLODIPINE 10MG TABLET PO SCH (09:00)
[2020-02-15] MEDS: CARVEDILOL 3.125 MG TABLET PO SCH ×2 (09:00→21:00)
[2020-02-15] MEDS: LOSARTAN POTASSIUM 50 MG TABLET PO SCH (09:00)
[2020-02-15] MEDS: FOLIC ACID 1MG TABLET PO SCH (10:04)
[2020-02-15] MEDS: FOLIC ACID/VITAMIN B COMP W-C TABLET PO SCH (10:04)
[2020-02-15] MEDS: THIAMINE HCL 100MG TABLET PO SCH (10:04)
[2020-02-15] MEDS: DOCUSATE SODIUM 100MG CAPSULE PO SCH ×2 (10:04→17:44)
[2020-02-15 20:00] VITALS: BP 122/62
[2020-02-16] MEDS: IPRATROPIUM/ALBUTEROL 0.5-3(2.5)MG/3ML NEB HHN SCH ×3 (02:14→22:32)
[2020-02-16] MEDS: HYDRALAZINE HCL 50MG TABLET PO SCH ×3 (05:51→22:44)
[2020-02-16 07:31] LABS: HEMATOCRIT. 28.4 % (42.0-52.0); HEMOGLOBIN. 9.7 g/dL (14.0-18.0); MEAN CORPUSCULAR HEMOGLOBIN 34.5 pg (28.0-32.0); MEAN CORPUSCULAR VOLUME 101.3 fL (80.0-94.0); MEAN PLATELET VOLUME 8.2 fl (7.4-10.4); PLATELET 79 x1000/uL (130-400); RED CELL DISTRIBUTION WIDTH 20.2 % (11.6-14.6)
[2020-02-16 08:00] VITALS: BP 127/58
[2020-02-16] MEDS: DOCUSATE SODIUM 100MG CAPSULE PO SCH ×2 (09:29→16:20)
[2020-02-16] MEDS: CARVEDILOL 3.125 MG TABLET PO SCH ×2 (09:29→20:44)
[2020-02-16] MEDS: FOLIC ACID 1MG TABLET PO SCH (09:29)
[2020-02-16] MEDS: AMLODIPINE 10MG TABLET PO SCH (09:29)
[2020-02-16] MEDS: LOSARTAN POTASSIUM 50 MG TABLET PO SCH (09:29)
[2020-02-16] MEDS: FOLIC ACID/VITAMIN B COMP W-C TABLET PO SCH (09:29)
[2020-02-16] MEDS: THIAMINE HCL 100MG TABLET PO SCH (09:29)
[2020-02-16 13:57] LABS: PLATELET ESTIMATE DECREASED
[2020-02-16 20:00] VITALS: BP 129/61
[2020-02-17] MEDS: IPRATROPIUM/ALBUTEROL 0.5-3(2.5)MG/3ML NEB HHN SCH ×3 (02:27→22:12)
[2020-02-17] MEDS: HYDRALAZINE HCL 50MG TABLET PO SCH ×3 (05:37→22:12)
[2020-02-17 07:04] LABS: HEMATOCRIT. 28.9 % (42.0-52.0); HEMOGLOBIN. 9.9 g/dL (14.0-18.0); MEAN CORPUSCULAR HEMOGLOBIN 34.7 pg (28.0-32.0); MEAN CORPUSCULAR VOLUME 101.2 fL (80.0-94.0); MEAN PLATELET VOLUME 8.3 fl (7.4-10.4); PLATELET 97 x1000/uL (130-400); RED BLOOD CELL COUNT 2.86 mill/uL (4.7-6.1); RED CELL DISTRIBUTION WIDTH 20.5 % (11.6-14.6)
[2020-02-17 08:00] VITALS: BP 148/73
[2020-02-17] MEDS: LOSARTAN POTASSIUM 50 MG TABLET PO SCH (09:01)
[2020-02-17] MEDS: FOLIC ACID 1MG TABLET PO SCH (09:01)
[2020-02-17] MEDS: THIAMINE HCL 100MG TABLET PO SCH (09:01)
[2020-02-17] MEDS: FOLIC ACID/VITAMIN B COMP W-C TABLET PO SCH (09:01)
[2020-02-17] MEDS: CARVEDILOL 3.125 MG TABLET PO SCH ×2 (09:02→21:00)
[2020-02-17] MEDS: DOCUSATE SODIUM 100MG CAPSULE PO SCH ×2 (09:04→16:36)
[2020-02-17] MEDS: AMLODIPINE 10MG TABLET PO SCH (09:07)
[2020-02-17 11:17] LABS: PLATELET ESTIMATE SLIGHTLY DECREASED
[2020-02-17 20:00] VITALS: BP 112/53
[2020-02-18] MEDS: IPRATROPIUM/ALBUTEROL 0.5-3(2.5)MG/3ML NEB HHN SCH ×3 (03:48→13:19)
[2020-02-18] MEDS: HYDRALAZINE HCL 50MG TABLET PO SCH ×2 (06:24→14:23)
[2020-02-18 07:06] LABS: HEMATOCRIT. 30.3 % (42.0-52.0); HEMOGLOBIN. 10.3 g/dL (14.0-18.0); MEAN CORPUSCULAR VOLUME 100.2 fL (80.0-94.0); MEAN PLATELET VOLUME 7.9 fl (7.4-10.4); PLATELET 75 x1000/uL (130-400); RED BLOOD CELL COUNT 3.02 mill/uL (4.7-6.1)
[2020-02-18 08:00] VITALS: BP 138/67
[2020-02-18] MEDS: DOCUSATE SODIUM 100MG CAPSULE PO SCH ×2 (08:03→16:30)
[2020-02-18] MEDS: LOSARTAN POTASSIUM 50 MG TABLET PO SCH (08:03)
[2020-02-18] MEDS: THIAMINE HCL 100MG TABLET PO SCH (08:03)
[2020-02-18] MEDS: FOLIC ACID/VITAMIN B COMP W-C TABLET PO SCH (08:03)
[2020-02-18] MEDS: FOLIC ACID 1MG TABLET PO SCH (08:03)
[2020-02-18] MEDS: AMLODIPINE 10MG TABLET PO SCH (08:07)
[2020-02-18] MEDS: CARVEDILOL 3.125 MG TABLET PO SCH (08:07)
[2020-02-18 13:53] VITALS: BP 141/56
[2020-02-18 13:53] LABS: PLATELET ESTIMATE DECREASED
== END 2020-02-18 18:48 | DRG 70 ==
PROVIDERS: ADMIT Psychiatry & Neurology Neurology; ATTEND Internal Medicine
PROC: 5A1D70Z Performance of Urinary Filtration, Intermittent, Less than 6 Hours Per Day (ICD-10-PCS; 2020-02-07)
PROC: 5A1D70Z Performance of Urinary Filtration, Intermittent, Less than 6 Hours Per Day (ICD-10-PCS; 2020-02-09)
PROC: 30233N1 Transfusion of Nonautologous Red Blood Cells into Peripheral Vein, Percutaneous Approach (ICD-10-PCS; principal; 2020-02-10)
PROC: 5A1D70Z Performance of Urinary Filtration, Intermittent, Less than 6 Hours Per Day (ICD-10-PCS; 2020-02-11)
PROC: 5A1D70Z Performance of Urinary Filtration, Intermittent, Less than 6 Hours Per Day (ICD-10-PCS; 2020-02-13)
PROC: 5A1D70Z Performance of Urinary Filtration, Intermittent, Less than 6 Hours Per Day (ICD-10-PCS; 2020-02-15)
DX: G93.40 Encephalopathy, unspecified (principal); J18.9 Pneumonia, unspecified organism; N18.6 End stage renal disease; J96.00 Acute respiratory failure, unspecified whether with hypoxia or hypercapnia; A41.9 Sepsis, unspecified organism; E87.1 Hypo-osmolality and hyponatremia; E46 Unspecified protein-calorie malnutrition; E87.0 Hyperosmolality and hypernatremia; E87.2 Acidosis; J44.0 Chronic obstructive pulmonary disease with (acute) lower respiratory infection; N17.9 Acute kidney failure, unspecified; I13.2 Hypertensive heart and chronic kidney disease with heart failure and with stage 5 chronic kidney disease, or end stage renal disease; I50.20 Unspecified systolic (congestive) heart failure; J44.1 Chronic obstructive pulmonary disease with (acute) exacerbation; D61.818 Other pancytopenia; Z68.1 Body mass index [BMI] 19.9 or less, adult; F17.210 Nicotine dependence, cigarettes, uncomplicated; E87.5 Hyperkalemia; D69.6 Thrombocytopenia, unspecified; D72.819 Decreased white blood cell count, unspecified; E83.51 Hypocalcemia; R32 Unspecified urinary incontinence; R26.81 Unsteadiness on feet; Z60.2 Problems related to living alone; R41.82 Altered mental status, unspecified; Z99.2 Dependence on renal dialysis; Z79.899 Other long term (current) drug therapy
CPT/HCPCS: 36415; 71045; 80048; 85025; 86850; 86900; 86920; 92523; 92610; 93970; 94640; 97110; 97112; 97116; 97162; 97166; 97530; 97535; J0885; J1644; J1650; J7512; J7626; P9016

== ENCOUNTER 2020-03-18 14:02 | Inpatient (IN) | payer MEDICARE ==
[~2020-03-18] VITALS: Ht 157.5 cm; Wt 50.6 kg
[2020-03-18 15:05] LABS: HEMATOCRIT. 22.9 % (42.0-52.0); HEMOGLOBIN. 7.7 g/dL (14.0-18.0); MEAN CORPUSCULAR HEMOGLOBIN 33.3 pg (28.0-32.0); MEAN CORPUSCULAR VOLUME 99.4 fL (80.0-94.0); MEAN PLATELET VOLUME 7.3 fl (7.4-10.4); PLATELET 202 x1000/uL (130-400); RED BLOOD CELL COUNT 2.31 mill/uL (4.7-6.1); RED CELL DISTRIBUTION WIDTH 18.6 % (11.6-14.6)
[2020-03-18] MEDS ORDERED: SODIUM CHLORIDE 0.9% 1000ML BAG (SEPSIS BOLUS) IV ONE (15:30)
[2020-03-18] MEDS ORDERED: VANCOMYCIN 1 G PREMIX 200 ML IV ONE (15:30)
[2020-03-18 15:37] LABS: CLARITY URINE CLOUDY (CLEAR); COLOR URINE DARK YELLOW (YELLOW); KETONES URINE TRACE (NEGATIVE); LEUKOCYTE ESTERASE URINE 2+ (NEGATIVE); NITRITE URINE NEGATIVE (NEGATIVE); OCCULT BLOOD URINE TRACE (NEGATIVE); PROTEIN URINE 2+ (NEGATIVE); SPECIFIC GRAVITY URINE 1.027 (1.005-1.030)
[2020-03-18 17:09] LABS: PLATELET ESTIMATE NORMAL
[2020-03-18] MEDS ORDERED: SODIUM CHLORIDE 0.9% 500 ML IV ONE (17:30)
[2020-03-18] MEDS ORDERED: ONDANSETRON HCL 4MG/2ML INJ IV PRN (18:00)
[2020-03-18] MEDS ORDERED: ACETAMINOPHEN 325MG TABLET PO PRN (18:00)
[2020-03-18] MEDS ORDERED: DOCUSATE SODIUM 100MG CAPSULE PO PRN (18:00)
[2020-03-18] MEDS ORDERED: MORPHINE SULFATE 2 MG/ML CPJ (NOT FOR IM USE) IV PRN (18:00)
[2020-03-18] MEDS ORDERED: HYDRALAZINE 20MG/ML VIAL IV PRN (18:00)
[2020-03-18] MEDS ORDERED: GUAIFENESIN 200MG/10ML SUGAR FREE UDC PO PRN (18:00)
[2020-03-18] MEDS ORDERED: DIPHENHYDRAMINE 50MG/ML VIAL IV PRN (18:00)
[2020-03-18] MEDS ORDERED: CEFTRIAXONE 1 G PREMIX 50 ML IV SCH (18:00)
[2020-03-18] MEDS ORDERED: CLONIDINE 0.1MG TABLET PO PRN (18:00)
[2020-03-18] MEDS ORDERED: LORAZEPAM 2MG/ML CPJ IV PRN (18:00)
[2020-03-18] MEDS ORDERED: POTASSIUM CHLORIDE 20MEQ TABLET SR PO NR (18:00)
[2020-03-18] MEDS ORDERED: IPRATROPIUM/ALBUTEROL 0.5-3(2.5)MG/3ML NEB HHN PRN (18:00)
[2020-03-18] MEDS ORDERED: MAGNESIUM/ALUMINUM HYDROXIDE/SIMETHICONE 30ML UDC PO PRN (18:00)
[2020-03-18] MEDS ORDERED: HYDROCODONE/ACETAMINOPHEN 10/325MG TABLET PO PRN (18:00)
[2020-03-18 22:00] VITALS: BP 108/58
[2020-03-18] MEDS ORDERED: DIPH25CA83 PO (23:59)
[2020-03-18] MEDS ORDERED: THIA50TA11 PO (23:59)
[2020-03-18] MEDS ORDERED: ONDA4TAB5 PO (23:59)
[2020-03-18] MEDS ORDERED: GUAI5SYR3 MT (23:59)
[2020-03-18] MEDS ORDERED: CLON-457 PO (23:59)
[2020-03-18] MEDS ORDERED: TOPUD PO (23:59)
[2020-03-18] MEDS ORDERED: AMLO10TA80 PO (23:59)
[2020-03-18] MEDS ORDERED: IPRA3AMP9 NEB (23:59)
[2020-03-18] MEDS ORDERED: SIME125C PO (23:59)
[2020-03-18] MEDS ORDERED: FOLI-43 PO (23:59)
[2020-03-18] MEDS ORDERED: FOLI0.8T23 MT (23:59)
[2020-03-18] MEDS ORDERED: HYDR-4135 PO (23:59)
[2020-03-18] MEDS ORDERED: DOCU-138 PO (23:59)
[2020-03-18] MEDS ORDERED: LOV30 SQ (23:59)
[2020-03-18] MEDS ORDERED: LOSA50TA3 PO (23:59)
[2020-03-18] MEDS ORDERED: COR3 PO (23:59)
[2020-03-19] VITALS: BP 108/58
[2020-03-19] MEDS: SODIUM CHLORIDE 0.9% INJ 3ML FLUSH IVF SCH (00:08)
[2020-03-19] MEDS: ENOXAPARIN 30MG/0.3ML SYR SUBCUT SCH ×2 (00:10→22:04)
[2020-03-19 04:00] VITALS: BP 102/34
[2020-03-19 06:26] LABS: MEAN CORPUSCULAR VOLUME 98.9 fL (80.0-94.0); MEAN PLATELET VOLUME 7.9 fl (7.4-10.4); PLATELET 237 x1000/uL (130-400); RED BLOOD CELL COUNT 2.43 mill/uL (4.7-6.1); RED CELL DISTRIBUTION WIDTH 18.7 % (11.6-14.6)
[2020-03-19 06:35] LABS: CHLORIDE 101 mEq/L (98-107)
[2020-03-19 08:00] VITALS: BP 106/57
[2020-03-19] MEDS ORDERED: POTASSIUM CHLORIDE 20MEQ/PACKET PO NR (10:15)
[2020-03-19 12:00] VITALS: BP 107/53
[2020-03-19] MEDS ORDERED: ALBUTEROL 6.7GM HFA INHALER ORI SCH (12:00)
[2020-03-19 15:35] LABS: PLATELET ESTIMATE NORMAL
[2020-03-19 16:00] VITALS: BP 105/47
[2020-03-19 20:03] VITALS: BP 96/50
[2020-03-19] MEDS: CEFTRIAXONE 1,000 MG in DEXTROSE 5% WATER 50 ML IV SCH (22:38)
[2020-03-20] VITALS: BP 94/48
[2020-03-20 04:00] VITALS: BP 106/57
[2020-03-20 08:00] VITALS: BP 98/54
[2020-03-20] MEDS ORDERED: POTASSIUM CHLORIDE 20MEQ/PACKET PO NR (11:15)
[2020-03-20] MEDS: SODIUM CHLORIDE 0.45% 1,000 ML IV SCH (11:24)
[2020-03-20 12:00] VITALS: BP 101/51
[2020-03-20] MEDS ORDERED: ALBUTEROL (0.083%) 2.5MG/3ML NEB HHN SCH (12:00)
[2020-03-20 16:00] VITALS: BP 113/58
[2020-03-20] MEDS: SODIUM CHLORIDE 0.9% INJ 3ML FLUSH IVF SCH ×2 (17:26→21:48)
[2020-03-20 20:00] VITALS: BP 104/55
[2020-03-20] MEDS: ENOXAPARIN 30MG/0.3ML SYR SUBCUT SCH (20:08)
[2020-03-20] MEDS: CEFTRIAXONE 1,000 MG in DEXTROSE 5% WATER 50 ML IV SCH (21:48)
[2020-03-21] VITALS: BP 104/57
[2020-03-21 04:00] VITALS: BP 101/55
[2020-03-21] MEDS: SODIUM CHLORIDE 0.9% INJ 3ML FLUSH IVF SCH ×2 (06:27→14:09)
[2020-03-21 07:29] LABS: HEMOGLOBIN. 7.7 g/dL (14.0-18.0); MEAN CORPUSCULAR HEMOGLOBIN 32.9 pg (28.0-32.0); MEAN CORPUSCULAR VOLUME 98.8 fL (80.0-94.0); MEAN PLATELET VOLUME 7.6 fl (7.4-10.4); PLATELET 265 x1000/uL (130-400); RED BLOOD CELL COUNT 2.32 mill/uL (4.7-6.1); RED CELL DISTRIBUTION WIDTH 19.2 % (11.6-14.6)
[2020-03-21 07:51] LABS: PHOSPHORUS 3.2 mg/dL (2.5-4.9)
[2020-03-21 08:00] VITALS: BP 99/56
[2020-03-21] MEDS: SODIUM CHLORIDE 0.45% 1,000 ML IV SCH (08:04)
[2020-03-21] MEDS ORDERED: POTASSIUM CHLORIDE 20MEQ/PACKET PO SCH (10:30)
[2020-03-21 11:30] LABS: HEMATOCRIT 23.4 % (42.0-52.0); HEMOGLOBIN 7.7 g/dL (14.0-18.0); MEAN CORPUSCULAR HEMOGLOBIN 32.6 pg (28.0-32.0); MEAN CORPUSCULAR VOLUME 98.7 fL (80.0-94.0); PLATELET 276 x1000/uL (130-400); RED BLOOD CELL COUNT 2.37 mill/uL (4.7-6.1); RED CELL DISTRIBUTION WIDTH 19.3 % (11.6-14.6)
[2020-03-21 12:00] VITALS: BP 107/61
[2020-03-21 13:12] LABS: PLATELET ESTIMATE NORMAL
[2020-03-21 16:00] VITALS: BP 102/52
[2020-03-21 16:22] LABS: PHOSPHORUS 2.7 mg/dL (2.5-4.9)
[2020-03-21 18:31] VITALS: BP 102/54
== END 2020-03-21 20:23 | DRG 871 ==
LOC: ER 14:02 → 7WST 17:43 → EDBEDREQ 17:49 → EDBEDREQSVC 17:49 → EDBEDREQTM 17:49 → ENRESERV 20:20 → 5WST 03-19 19:04
PROVIDERS: ADMIT Internal Medicine; ATTEND Internal Medicine
DX: A41.9 Sepsis, unspecified organism (principal); N18.6 End stage renal disease; E46 Unspecified protein-calorie malnutrition; I13.2 Hypertensive heart and chronic kidney disease with heart failure and with stage 5 chronic kidney disease, or end stage renal disease; I42.9 Cardiomyopathy, unspecified; I50.22 Chronic systolic (congestive) heart failure; E87.6 Hypokalemia; J44.9 Chronic obstructive pulmonary disease, unspecified; F17.210 Nicotine dependence, cigarettes, uncomplicated; D64.9 Anemia, unspecified; N30.90 Cystitis, unspecified without hematuria; Z20.828 Contact with and (suspected) exposure to other viral communicable diseases; Z99.2 Dependence on renal dialysis; Z68.20 Body mass index [BMI] 20.0-20.9, adult
CPT/HCPCS: 36415; 71045; 80048; 80053; 81003; 82270; 82962; 83605; 83735; 83880; 84100; 84132; 85025; 85027; 87077; 87186; 87635; 93005; 99291; J0696; J1650; J3370; J7030; J7040; J7060

== ENCOUNTER 2020-04-21 15:35 | Inpatient (IN) | payer MEDICARE ==
[~2020-04-21] VITALS: Ht 172.7 cm; Wt 59.4 kg
[~2020-04-21 15:35] MED LIST: AMLO10TA80 PO; CLON-457 PO; COR3 PO; DIPH25CA83 PO; DOCU-138 PO; FOLI-43 PO; FOLI0.8T23 MT; GUAI5SYR3 MT; HYDR-4135 PO; IPRA3AMP9 NEB; LOSA50TA3 PO; LOV30 SQ; ONDA4TAB5 PO; SIME125C PO; THIA50TA11 PO; TOPUD PO
[2020-04-21 16:52] LABS: HEMATOCRIT. 24.3 % (42.0-52.0); HEMOGLOBIN. 8.2 g/dL (14.0-18.0); MEAN CORPUSCULAR HEMOGLOBIN 32.2 pg (28.0-32.0); MEAN CORPUSCULAR VOLUME 95.9 fL (80.0-94.0); MEAN PLATELET VOLUME 8.1 fl (7.4-10.4); PLATELET 142 x1000/uL (130-400); RED BLOOD CELL COUNT 2.53 mill/uL (4.7-6.1); RED CELL DISTRIBUTION WIDTH 21.9 % (11.6-14.6)
[2020-04-21 16:58] LABS: CHLORIDE 111 mEq/L (98-107)
[2020-04-21 17:01] LABS: INR 1.1; PROTHROMBIN TIME 11.4 sec (9.6-11.0)
[2020-04-21 17:11] LABS: PLATELET ESTIMATE NORMAL
[2020-04-21] MEDS ORDERED: DIPHENHYDRAMINE 50MG/ML VIAL IV PRN (20:15)
[2020-04-21] MEDS ORDERED: HYDROCODONE/ACETAMINOPHEN 10/325MG TABLET PO PRN (20:15)
[2020-04-21] MEDS ORDERED: MAGNESIUM/ALUMINUM HYDROXIDE/SIMETHICONE 30ML UDC PO PRN (20:15)
[2020-04-21] MEDS ORDERED: IPRATROPIUM/ALBUTEROL 0.5-3(2.5)MG/3ML NEB HHN PRN (20:15)
[2020-04-21] MEDS ORDERED: DOCUSATE SODIUM 100MG CAPSULE PO PRN (20:15)
[2020-04-21] MEDS ORDERED: CLONIDINE 0.1MG TABLET PO PRN (20:15)
[2020-04-21] MEDS ORDERED: MORPHINE SULFATE 2 MG/ML CPJ (NOT FOR IM USE) IV PRN (20:15)
[2020-04-21] MEDS ORDERED: ONDANSETRON HCL 4MG/2ML INJ IV PRN (20:15)
[2020-04-21] MEDS ORDERED: GUAIFENESIN 200MG/10ML SUGAR FREE UDC PO PRN (20:15)
[2020-04-21] MEDS ORDERED: LORAZEPAM 2MG/ML CPJ IV PRN (20:15)
[2020-04-21] MEDS ORDERED: ACETAMINOPHEN 325MG TABLET PO PRN (20:15)
[2020-04-21 20:26] LABS: HEMATOCRIT 24.2 % (42.0-52.0)
[2020-04-21] MEDS: SODIUM CHLORIDE 0.9% INJ 3ML FLUSH IVF SCH (22:03)
[2020-04-21 22:30] VITALS: BP 115/66
[2020-04-22] VITALS (8 sets, daily range): BP systolic 79–115; BP diastolic 42–71
[2020-04-22] MEDS ORDERED: LOPE2TAB26 GT (00:41)
[2020-04-22] MEDS ORDERED: FOLI0.8T23 GT (00:41)
[2020-04-22] MEDS ORDERED: PANT40TA4 GT (00:41)
[2020-04-22] MEDS ORDERED: PROT40 GT (00:41)
[2020-04-22] MEDS ORDERED: SIME125C GT (00:41)
[2020-04-22] MEDS ORDERED: MOM GT (00:41)
[2020-04-22] MEDS ORDERED: TOPUD GT (00:41)
[2020-04-22] MEDS: SODIUM CHLORIDE 0.9% INJ 3ML FLUSH IVF SCH ×3 (06:11→21:15)
[2020-04-22 09:29] LABS: HEMATOCRIT. 21.4 % (42.0-52.0); HEMOGLOBIN. 7.1 g/dL (14.0-18.0); MEAN CORPUSCULAR HEMOGLOBIN 31.7 pg (28.0-32.0); MEAN CORPUSCULAR VOLUME 95.6 fL (80.0-94.0); MEAN PLATELET VOLUME 8.1 fl (7.4-10.4); PLATELET 131 x1000/uL (130-400); RED BLOOD CELL COUNT 2.24 mill/uL (4.7-6.1)
[2020-04-22 09:36] LABS: CHLORIDE 113 mEq/L (98-107)
[2020-04-22 10:08] LABS: TOTAL IRON BINDING CAPACITY 174 ug/dL (250-450)
[2020-04-22 20:43] LABS: HEMOGLOBIN 9.9 g/dL (14.0-18.0)
[2020-04-22 20:47] LABS: PLATELET ESTIMATE NORMAL
[2020-04-23] VITALS: BP 109/62
[2020-04-23 04:00] VITALS: BP 94/61
[2020-04-23 07:32] LABS: HEMATOCRIT. 28.8 % (42.0-52.0); HEMOGLOBIN. 9.4 g/dL (14.0-18.0); MEAN CORPUSCULAR HEMOGLOBIN 31.4 pg (28.0-32.0); MEAN CORPUSCULAR VOLUME 95.8 fL (80.0-94.0); MEAN PLATELET VOLUME 8.7 fl (7.4-10.4); PLATELET 132 x1000/uL (130-400); RED BLOOD CELL COUNT 3.01 mill/uL (4.7-6.1); RED CELL DISTRIBUTION WIDTH 20.4 % (11.6-14.6)
[2020-04-23] MEDS: SODIUM CHLORIDE 0.9% INJ 3ML FLUSH IVF SCH ×3 (07:35→21:22)
[2020-04-23 08:00] VITALS: BP 110/75
[2020-04-23] MEDS ORDERED: POTASSIUM CHLORIDE 20MEQ TABLET SR PO SCH (09:00)
[2020-04-23 10:05] LABS: PLATELET ESTIMATE NORMAL
[2020-04-23 12:00] VITALS: BP 124/61
[2020-04-23] MEDS: MIDODRINE HCL 5MG TABLET PO SCH ×2 (13:11→21:23)
[2020-04-23 16:00] VITALS: BP 109/71
[2020-04-23] MEDS ORDERED: OCTREOTIDE 1,000 MCG in SODIUM CHLORIDE 0.9% 98 ML IV PRN (16:15)
[2020-04-23 20:26] VITALS: BP 115/82
[2020-04-24 00:14] VITALS: BP 116/75
[2020-04-24 04:00] VITALS: BP 119/62
[2020-04-24] MEDS: MIDODRINE HCL 5MG TABLET PO SCH ×3 (05:52→21:17)
[2020-04-24] MEDS: SODIUM CHLORIDE 0.9% INJ 3ML FLUSH IVF SCH ×2 (05:53→21:18)
[2020-04-24 07:15] LABS: BASOPHILS % 0.6 % (0.0-2.0); EOSINOPHILS % 1.1 % (0.0-5.0); HEMATOCRIT. 26.1 % (42.0-52.0); HEMOGLOBIN. 8.8 g/dL (14.0-18.0); LYMPHOCYTES % 12.3 % (20.0-50.0); MEAN CORPUSCULAR HEMOGLOBIN 31.4 pg (28.0-32.0); MEAN CORPUSCULAR VOLUME 93.4 fL (80.0-94.0); MEAN PLATELET VOLUME 8.4 fl (7.4-10.4); MONOCYTES % 12.8 % (2.0-8.0); NEUTROPHILS % 73.2 % (40.0-76.0); PLATELET 126 x1000/uL (130-400); RED BLOOD CELL COUNT 2.79 mill/uL (4.7-6.1); RED CELL DISTRIBUTION WIDTH 19.4 % (11.6-14.6)
[2020-04-24] MEDS: SUCRALFATE 1G TABLET PO SCH ×4 (07:29→21:17)
[2020-04-24 08:00] VITALS: BP 115/61
[2020-04-24] MEDS: PANTOPRAZOLE SODIUM 40 MG/VIAL IV SCH ×2 (08:22→17:33)
[2020-04-24 12:00] VITALS: BP 122/65
[2020-04-24] MEDS ORDERED: HYDROCODONE/ACETAMINOPHEN 10/325MG TABLET PO PRN (15:45)
[2020-04-24] MEDS ORDERED: MORPHINE SULFATE 2 MG/ML CPJ (NOT FOR IM USE) IV PRN (15:45)
[2020-04-24] MEDS ORDERED: DOCUSATE SODIUM 100MG CAPSULE PO PRN (15:45)
[2020-04-24] MEDS ORDERED: DIPHENHYDRAMINE 50MG/ML VIAL IV PRN (15:45)
[2020-04-24] MEDS ORDERED: IPRATROPIUM/ALBUTEROL 0.5-3(2.5)MG/3ML NEB HHN PRN (15:45)
[2020-04-24] MEDS ORDERED: MAGNESIUM/ALUMINUM HYDROXIDE/SIMETHICONE 30ML UDC PO PRN (15:45)
[2020-04-24] MEDS ORDERED: CLONIDINE 0.1MG TABLET PO PRN (15:45)
[2020-04-24] MEDS ORDERED: LORAZEPAM 2MG/ML CPJ IV PRN (15:45)
[2020-04-24] MEDS ORDERED: GUAIFENESIN 200MG/10ML SUGAR FREE UDC PO PRN (15:45)
[2020-04-24] MEDS ORDERED: ONDANSETRON HCL 4MG/2ML INJ IV PRN (15:45)
[2020-04-24] MEDS ORDERED: ACETAMINOPHEN 325MG TABLET PO PRN (15:45)
[2020-04-24 16:00] VITALS: BP_SYST 101; BP_SYST 195; BP_DIAS 104; BP_DIAS 59
[2020-04-24 20:00] VITALS: BP_SYST 110; BP_SYST 111; BP_DIAS 63; BP_DIAS 69
[2020-04-24] MEDS: EPOETIN ALFA 10000UNITS/ML VIAL SUBCUT SCH (21:17)
[2020-04-25] VITALS: BP 128/68
[2020-04-25 04:00] VITALS: BP 125/72
[2020-04-25] MEDS: MIDODRINE HCL 5MG TABLET PO SCH ×3 (06:08→21:42)
[2020-04-25] MEDS: SUCRALFATE 1G TABLET PO SCH ×4 (06:08→21:42)
[2020-04-25] MEDS: SODIUM CHLORIDE 0.9% INJ 3ML FLUSH IVF SCH ×3 (06:08→21:42)
[2020-04-25 06:46] LABS: BASOPHILS % 0.6 % (0.0-2.0); EOSINOPHILS % 0.9 % (0.0-5.0); HEMATOCRIT. 25.8 % (42.0-52.0); HEMOGLOBIN. 8.8 g/dL (14.0-18.0); LYMPHOCYTES % 15.3 % (20.0-50.0); MEAN CORPUSCULAR HEMOGLOBIN 31.8 pg (28.0-32.0); MEAN CORPUSCULAR VOLUME 93.3 fL (80.0-94.0); MEAN PLATELET VOLUME 8.2 fl (7.4-10.4); MONOCYTES % 13.8 % (2.0-8.0); NEUTROPHILS % 69.4 % (40.0-76.0); PLATELET 119 x1000/uL (130-400); RED BLOOD CELL COUNT 2.76 mill/uL (4.7-6.1); RED CELL DISTRIBUTION WIDTH 18.8 % (11.6-14.6)
[2020-04-25 08:00] VITALS: BP 119/62
[2020-04-25] MEDS: PANTOPRAZOLE SODIUM 40 MG/VIAL IV SCH ×2 (08:43→21:41)
[2020-04-25 12:00] VITALS: BP 110/59
[2020-04-25 16:00] VITALS: BP 123/67
[2020-04-25 20:00] VITALS: BP 127/74
[2020-04-26] VITALS: BP 117/64
[2020-04-26 04:00] VITALS: BP 125/75
[2020-04-26] MEDS: SUCRALFATE 1G TABLET PO SCH ×4 (06:09→20:35)
[2020-04-26] MEDS: MIDODRINE HCL 5MG TABLET PO SCH ×3 (06:09→22:01)
[2020-04-26] MEDS: SODIUM CHLORIDE 0.9% INJ 3ML FLUSH IVF SCH ×3 (06:10→22:01)
[2020-04-26 08:00] VITALS: BP 124/66
[2020-04-26] MEDS: PANTOPRAZOLE SODIUM 40 MG/VIAL IV SCH ×2 (08:48→20:35)
[2020-04-26 10:51] LABS: HEMATOCRIT 23.9 % (42.0-52.0); HEMOGLOBIN 8.1 g/dL (14.0-18.0); MEAN CORPUSCULAR HEMOGLOBIN 32.4 pg (28.0-32.0); MEAN CORPUSCULAR VOLUME 95.3 fL (80.0-94.0); PLATELET 172 x1000/uL (130-400); RED CELL DISTRIBUTION WIDTH 19.1 % (11.6-14.6)
[2020-04-26 12:00] VITALS: BP 126/62
[2020-04-26 16:00] VITALS: BP 127/65
[2020-04-26 20:00] VITALS: BP 123/59
[2020-04-27] VITALS: BP 129/64
[2020-04-27 04:00] VITALS: BP 130/86
[2020-04-27] MEDS: SODIUM CHLORIDE 0.9% INJ 3ML FLUSH IVF SCH ×3 (05:21→21:34)
[2020-04-27] MEDS: SUCRALFATE 1G TABLET PO SCH ×4 (06:36→21:33)
[2020-04-27] MEDS: MIDODRINE HCL 5MG TABLET PO SCH ×3 (06:36→21:33)
[2020-04-27 06:53] LABS: HEMATOCRIT. 22.9 % (42.0-52.0); HEMOGLOBIN. 7.7 g/dL (14.0-18.0); MEAN CORPUSCULAR VOLUME 95.3 fL (80.0-94.0); MEAN PLATELET VOLUME 7.7 fl (7.4-10.4); PLATELET 207 x1000/uL (130-400); RED CELL DISTRIBUTION WIDTH 19.2 % (11.6-14.6)
[2020-04-27 08:00] VITALS: BP 112/67
[2020-04-27] MEDS: PANTOPRAZOLE SODIUM 40 MG/VIAL IV SCH ×2 (08:47→21:33)
[2020-04-27 10:28] LABS: PLATELET ESTIMATE NORMAL
[2020-04-27 12:00] VITALS: BP 127/68
[2020-04-27 16:33] VITALS: BP 136/70
[2020-04-27 20:00] VITALS: BP 118/63
[2020-04-27] MEDS: EPOETIN ALFA 10000UNITS/ML VIAL SUBCUT SCH (21:33)
[2020-04-28] VITALS: BP 118/67
[2020-04-28 04:00] VITALS: BP 117/69
[2020-04-28] MEDS: MIDODRINE HCL 5MG TABLET PO SCH ×2 (05:57→15:25)
[2020-04-28] MEDS: SUCRALFATE 1G TABLET PO SCH ×3 (05:57→16:51)
[2020-04-28] MEDS: SODIUM CHLORIDE 0.9% INJ 3ML FLUSH IVF SCH ×2 (05:57→14:00)
[2020-04-28 06:06] LABS: HEMATOCRIT. 25.8 % (42.0-52.0); HEMOGLOBIN. 8.4 g/dL (14.0-18.0); MEAN CORPUSCULAR HEMOGLOBIN 31.3 pg (28.0-32.0); MEAN CORPUSCULAR VOLUME 95.9 fL (80.0-94.0); MEAN PLATELET VOLUME 7.4 fl (7.4-10.4); PLATELET 228 x1000/uL (130-400); RED BLOOD CELL COUNT 2.69 mill/uL (4.7-6.1); RED CELL DISTRIBUTION WIDTH 19.9 % (11.6-14.6)
[2020-04-28 08:00] VITALS: BP 157/61
[2020-04-28] MEDS: PANTOPRAZOLE SODIUM 40 MG/VIAL IV SCH (08:45)
[2020-04-28] MEDS ORDERED: POTASSIUM CHLORIDE 20MEQ TABLET SR PO NR (09:00)
[2020-04-28 12:00] VITALS: BP 126/58
[2020-04-28 14:16] LABS: NUCLEATED RED BLOOD CELLS 1 /100 WBC; PLATELET ESTIMATE NORMAL
[2020-04-28 18:47] VITALS: BP 120/68
[2020-04-28 20:00] VITALS: BP 123/57
== END 2020-04-28 21:45 | DRG 377 ==
LOC: ER 15:35 → 5WST 21:58 → EDBEDREQ 22:00 → EDBEDREQTM 22:00 → ENRESERV 22:02
PROVIDERS: ADMIT Internal Medicine; ATTEND Internal Medicine
PROC: 30233N1 Transfusion of Nonautologous Red Blood Cells into Peripheral Vein, Percutaneous Approach (ICD-10-PCS; principal; 2020-04-22)
PROC: 5A1D70Z Performance of Urinary Filtration, Intermittent, Less than 6 Hours Per Day (ICD-10-PCS; 2020-04-22)
PROC: 5A1D70Z Performance of Urinary Filtration, Intermittent, Less than 6 Hours Per Day (ICD-10-PCS; 2020-04-24)
PROC: 5A1D70Z Performance of Urinary Filtration, Intermittent, Less than 6 Hours Per Day (ICD-10-PCS; 2020-04-27)
PROC: 5A1D70Z Performance of Urinary Filtration, Intermittent, Less than 6 Hours Per Day (ICD-10-PCS; 2020-04-28)
DX: K62.5 Hemorrhage of anus and rectum (principal); E43 Unspecified severe protein-calorie malnutrition; N18.6 End stage renal disease; I42.9 Cardiomyopathy, unspecified; R18.8 Other ascites; E87.2 Acidosis; I12.0 Hypertensive chronic kidney disease with stage 5 chronic kidney disease or end stage renal disease; Z68.1 Body mass index [BMI] 19.9 or less, adult; K74.60 Unspecified cirrhosis of liver; K92.0 Hematemesis; K62.89 Other specified diseases of anus and rectum; G40.909 Epilepsy, unspecified, not intractable, without status epilepticus; J44.9 Chronic obstructive pulmonary disease, unspecified; D64.9 Anemia, unspecified; I25.10 Atherosclerotic heart disease of native coronary artery without angina pectoris; F03.90 Unspecified dementia, unspecified severity, without behavioral disturbance, psychotic disturbance, mood disturbance, and anxiety; K57.30 Diverticulosis of large intestine without perforation or abscess without bleeding; Z93.1 Gastrostomy status; Z79.899 Other long term (current) drug therapy; Z99.2 Dependence on renal dialysis; Z86.19 Personal history of other infectious and parasitic diseases
CPT/HCPCS: 36415; 74176; 76705; 78278; 80048; 80053; 82040; 82140; 82270; 82728; 83540; 83550; 84134; 84484; 85014; 85018; 85025; 85027; 86850; 86900; 86920; 87426; 92610; 93005; 93970; 99285; A9560; C9113; J0885; J2354; J7050; P9016

== ENCOUNTER 2020-05-06 09:39 | Inpatient (IN) | payer MEDICARE, MEDICAID ==
[~2020-05-06] VITALS: Ht 167.6 cm; Wt 43.1 kg
[~2020-05-06 09:39] MED LIST changes: -AMLO10TA80 PO; -CLON-457 PO; -COR3 PO; -DIPH25CA83 PO; +FOLI0.8T23 GT; -FOLI0.8T23 MT; -GUAI5SYR3 MT; -HYDR-4135 PO; -IPRA3AMP9 NEB; +LOPE2TAB26 GT; -LOSA50TA3 PO; -LOV30 SQ; +MOM GT; -ONDA4TAB5 PO; +PANT40TA4 GT; +SIME125C GT; -SIME125C PO; +TOPUD GT; -TOPUD PO
[2020-05-06 10:47] LABS: HEMOGLOBIN. 7.1 g/dL (14.0-18.0); MEAN CORPUSCULAR HEMOGLOBIN 30.8 pg (28.0-32.0); MEAN CORPUSCULAR VOLUME 95.6 fL (80.0-94.0); MEAN PLATELET VOLUME 7.6 fl (7.4-10.4); PLATELET 276 x1000/uL (130-400); RED CELL DISTRIBUTION WIDTH 19.6 % (11.6-14.6)
[2020-05-06 10:49] LABS: CHLORIDE 101 mEq/L (98-107)
[2020-05-06 11:57] LABS: PLATELET ESTIMATE NORMAL
[2020-05-06 12:09] LABS: BG BASE EXCESS 4.2 mmol/L (-2.0-2.0); BG CARBOXYHEMOGLOBIN 0.5 % (0.5-1.5); BG DEOXYHEMOGLOBIN 0.9 % (0.0-5.0); BG FRACTION INSPIRED OXYGEN 36; BG HCO3 ACT 27.7 mmol/L (22.0-26.0); BG METHEMOGLOBIN 0.3 % (0.0-1.5); BG OXYGEN SATURATION 99.1 % (92.0-98.5); BG OXYHEMOGLOBIN 98.3 % (94.0-97.0); BG PCO2 36.3 mmHg (35.0-45.0); BG PO2 164.2 mmHg (75.0-100.0); BG SAMPLE SITE RIGHT RADIAL; BG TOTAL HEMOGLOBIN 7.5 g/dL (12.0-18.0); BG VENT MODE NASAL CANNULA
[2020-05-06] MEDS ORDERED: SODIUM CHLORIDE 0.9% 500 ML IV NR (13:15)
[2020-05-06] MEDS ORDERED: VANCOMYCIN 1 G PREMIX 200 ML IV SCH (13:15)
[2020-05-06] MEDS ORDERED: LEVOFLOXACIN 500MG PREMIX 100 ML IV ONE (13:15)
[2020-05-06] MEDS ORDERED: CEFTRIAXONE 1 G PREMIX 50 ML IV SCH (13:45)
[2020-05-06] MEDS ORDERED: CEFTRIAXONE 1 G PREMIX 50 ML IV NR (14:00)
[2020-05-06] MEDS ORDERED: AZITHROMYCIN 500 MG in DEXT 5% WATER 250 ML IV SCH (14:00)
[2020-05-06] MEDS ORDERED: CLONIDINE 0.1MG TABLET PO PRN (15:15)
[2020-05-06] MEDS ORDERED: DOCUSATE SODIUM 100MG CAPSULE PO PRN (15:15)
[2020-05-06] MEDS ORDERED: MAGNESIUM/ALUMINUM HYDROXIDE/SIMETHICONE 30ML UDC PO PRN (15:15)
[2020-05-06] MEDS ORDERED: GUAIFENESIN 200MG/10ML SUGAR FREE UDC PO PRN (15:15)
[2020-05-06] MEDS ORDERED: IPRATROPIUM/ALBUTEROL 0.5-3(2.5)MG/3ML NEB HHN PRN (15:15)
[2020-05-06] MEDS ORDERED: ONDANSETRON HCL 4MG/2ML INJ IV PRN (15:15)
[2020-05-06] MEDS ORDERED: LORAZEPAM 2MG/ML CPJ IV PRN (15:15)
[2020-05-06] MEDS ORDERED: HYDROCODONE/ACETAMINOPHEN 10/325MG TABLET PO PRN (15:15)
[2020-05-06] MEDS ORDERED: DIPHENHYDRAMINE 50MG/ML VIAL IV PRN (15:15)
[2020-05-06] MEDS ORDERED: MORPHINE SULFATE 2 MG/ML CPJ (NOT FOR IM USE) IV PRN (16:33)
[2020-05-06] MEDS: ENOXAPARIN 30MG/0.3ML SYR SUBCUT SCH (18:00)
[2020-05-06 23:36] VITALS: BP 112/55
[2020-05-07] VITALS (11 sets, daily range): BP systolic 85–127; BP diastolic 33–73
[2020-05-07] MEDS: MIDODRINE HCL 5MG TABLET PO SCH ×3 (09:31→17:13)
[2020-05-07] MEDS: SODIUM CHLORIDE 0.9% INJ 3ML FLUSH IVF SCH ×3 (09:32→21:41)
[2020-05-07] MEDS: AZITHROMYCIN 500 MG in DEXT 5% WATER 250 ML IV SCH (09:32)
[2020-05-07] MEDS: CEFTRIAXONE 1,000 MG in DEXTROSE 5% WATER 50 ML IV SCH (09:32)
[2020-05-07] MEDS ORDERED: ALBUMIN HUMAN 12.5GM/50ML (25%) IV NR (11:33)
[2020-05-07] MEDS ORDERED: CEFTRIAXONE 1,000 MG in DEXTROSE 5% WATER 50 ML IV SCH (13:00)
[2020-05-07] MEDS: ENOXAPARIN 30MG/0.3ML SYR SUBCUT SCH (17:12)
[2020-05-07 22:02] LABS: HEMATOCRIT. 28.1 % (42.0-52.0); HEMOGLOBIN. 9.2 g/dL (14.0-18.0); MEAN CORPUSCULAR HEMOGLOBIN 30.8 pg (28.0-32.0); MEAN CORPUSCULAR VOLUME 94.1 fL (80.0-94.0); MEAN PLATELET VOLUME 7.7 fl (7.4-10.4); PLATELET 251 x1000/uL (130-400); RED BLOOD CELL COUNT 2.98 mill/uL (4.7-6.1); RED CELL DISTRIBUTION WIDTH 17.7 % (11.6-14.6)
[2020-05-07 22:29] LABS: PLATELET ESTIMATE NORMAL
[2020-05-08 00:12] VITALS: BP 98/44
[2020-05-08 04:00] VITALS: BP 97/42
[2020-05-08] MEDS: SODIUM CHLORIDE 0.9% INJ 3ML FLUSH IVF SCH ×3 (05:34→21:14)
[2020-05-08 06:32] LABS: HEMOGLOBIN. 8.3 g/dL (14.0-18.0); MEAN CORPUSCULAR HEMOGLOBIN 31.4 pg (28.0-32.0); MEAN CORPUSCULAR VOLUME 94.7 fL (80.0-94.0); MEAN PLATELET VOLUME 7.4 fl (7.4-10.4); PLATELET 259 x1000/uL (130-400); RED BLOOD CELL COUNT 2.64 mill/uL (4.7-6.1)
[2020-05-08] MEDS: CEFTRIAXONE 1,000 MG in DEXTROSE 5% WATER 50 ML IV SCH (08:22)
[2020-05-08] MEDS: MIDODRINE HCL 5MG TABLET PO SCH ×3 (08:22→16:53)
[2020-05-08 08:45] LABS: PLATELET ESTIMATE NORMAL
[2020-05-08] MEDS: AZITHROMYCIN 500 MG in DEXT 5% WATER 250 ML IV SCH ×2 (09:00→16:53)
[2020-05-08 09:48] LABS: INR 1.3; PARTIAL THROMBOPLASTIN TIME 41.6 sec (23.4-31.0); PROTHROMBIN TIME 13.7 sec (9.6-11.0)
[2020-05-08] MEDS ORDERED: HEPARIN SODIUM 1,000 UNIT/1ML VIAL IV SCH (11:00)
[2020-05-08 12:39] VITALS: BP 102/77
[2020-05-08] MEDS ORDERED: SODIUM BICARBONATE 4% (2.4MEQ) 5ML VIAL IV ONE (12:59)
[2020-05-08 16:00] VITALS: BP 136/52
[2020-05-08 16:06] VITALS: BP 136/52
[2020-05-08] MEDS: ENOXAPARIN 30MG/0.3ML SYR SUBCUT SCH (17:07)
[2020-05-08] MEDS ORDERED: VECURONIUM BROMIDE 10 MG/VIAL IV ONE (19:57)
[2020-05-08] MEDS ORDERED: SUCCINYLCHOLINE CHLORIDE 200MG/10ML IV ONE (19:57)
[2020-05-08] MEDS ORDERED: ETOMIDATE 2MG/ML 10ML VIAL IV ONE (19:57)
[2020-05-08] MEDS ORDERED: EPINEPHRINE 0.1MG/ML (1:10,000) 10ML SYR ONE (19:59)
[2020-05-08 20:00] VITALS: BP 94/57
[2020-05-09] VITALS: BP 93/48
[2020-05-09 04:00] VITALS: BP 109/49
[2020-05-09] MEDS: SODIUM CHLORIDE 0.9% INJ 3ML FLUSH IVF SCH ×3 (05:11→21:00)
[2020-05-09 06:44] LABS: BASOPHILS % 0.4 % (0.0-2.0); EOSINOPHILS % 0.6 % (0.0-5.0); HEMATOCRIT. 24.3 % (42.0-52.0); HEMOGLOBIN. 7.9 g/dL (14.0-18.0); LYMPHOCYTES % 10.6 % (20.0-50.0); MEAN CORPUSCULAR HEMOGLOBIN 31.2 pg (28.0-32.0); MEAN CORPUSCULAR VOLUME 95.9 fL (80.0-94.0); MEAN PLATELET VOLUME 7.3 fl (7.4-10.4); MONOCYTES % 10.2 % (2.0-8.0); NEUTROPHILS % 78.2 % (40.0-76.0); PLATELET 240 x1000/uL (130-400); RED BLOOD CELL COUNT 2.53 mill/uL (4.7-6.1); RED CELL DISTRIBUTION WIDTH 18.6 % (11.6-14.6)
[2020-05-09 06:56] LABS: CHLORIDE 106 mEq/L (98-107)
[2020-05-09 08:00] VITALS: BP 125/68
[2020-05-09] MEDS: MIDODRINE HCL 5MG TABLET PO SCH ×3 (09:37→18:16)
[2020-05-09] MEDS: POTASSIUM CHLORIDE 20MEQ/PACKET PO SCH ×2 (09:38→18:16)
[2020-05-09] MEDS: CEFTRIAXONE 1,000 MG in DEXTROSE 5% WATER 50 ML IV SCH (09:38)
[2020-05-09] MEDS ORDERED: VANCOMYCIN 1 G PREMIX 200 ML IV SCH (11:00)
[2020-05-09 12:00] VITALS: BP 117/72
[2020-05-09 16:00] VITALS: BP 129/64
[2020-05-09] MEDS: AZITHROMYCIN 500 MG in DEXT 5% WATER 250 ML IV SCH (18:16)
[2020-05-09 20:17] VITALS: BP 122/57
[2020-05-09] MEDS: ACETAMINOPHEN 325MG TABLET PO PRN (20:43)
[2020-05-10 00:25] VITALS: BP 99/46
[2020-05-10 04:00] VITALS: BP 103/55
[2020-05-10] MEDS: SODIUM CHLORIDE 0.9% INJ 3ML FLUSH IVF SCH ×3 (05:11→21:00)
[2020-05-10 05:48] LABS: BASOPHILS % 0.8 % (0.0-2.0); EOSINOPHILS % 1.1 % (0.0-5.0); HEMATOCRIT. 24.5 % (42.0-52.0); HEMOGLOBIN. 7.9 g/dL (14.0-18.0); LYMPHOCYTES % 12.3 % (20.0-50.0); MEAN CORPUSCULAR HEMOGLOBIN 31.2 pg (28.0-32.0); MEAN CORPUSCULAR VOLUME 96.2 fL (80.0-94.0); MEAN PLATELET VOLUME 7.5 fl (7.4-10.4); MONOCYTES % 11.7 % (2.0-8.0); NEUTROPHILS % 74.1 % (40.0-76.0); PLATELET 239 x1000/uL (130-400); RED BLOOD CELL COUNT 2.54 mill/uL (4.7-6.1); RED CELL DISTRIBUTION WIDTH 18.7 % (11.6-14.6)
[2020-05-10 08:00] VITALS: BP 113/64
[2020-05-10] MEDS: CEFTRIAXONE 1,000 MG in DEXTROSE 5% WATER 50 ML IV SCH (08:57)
[2020-05-10] MEDS: POTASSIUM CHLORIDE 20MEQ/PACKET PO SCH (08:57)
[2020-05-10] MEDS: MIDODRINE HCL 5MG TABLET PO SCH ×3 (08:58→16:34)
[2020-05-10 12:00] VITALS: BP 112/56
[2020-05-10] MEDS: ACETAMINOPHEN 325MG TABLET PO PRN (12:50)
[2020-05-10 16:00] VITALS: BP 95/50
[2020-05-10] MEDS: AZITHROMYCIN 500 MG in DEXT 5% WATER 250 ML IV SCH (16:33)
[2020-05-10] MEDS: VANCOMYCIN HCL 1000 MG/20 ML ORAL PO SCH (17:57)
[2020-05-10 20:49] VITALS: BP 103/57
[2020-05-11 00:08] VITALS: BP 126/72
[2020-05-11 02:00] VITALS: BP 119/68
[2020-05-11] MEDS: VANCOMYCIN HCL 1000 MG/20 ML ORAL PO SCH ×2 (03:24→06:27)
[2020-05-11 04:00] VITALS: BP 119/68
[2020-05-11 05:15] LABS: PHOSPHORUS 2.5 mg/dL (2.5-4.9)
[2020-05-11] MEDS: SODIUM CHLORIDE 0.9% INJ 3ML FLUSH IVF SCH (06:07)
[2020-05-11 06:20] LABS: BASOPHILS % 0.9 % (0.0-2.0); HEMATOCRIT. 30.5 % (42.0-52.0); HEMOGLOBIN. 9.7 g/dL (14.0-18.0); LYMPHOCYTES % 10.6 % (20.0-50.0); MEAN CORPUSCULAR HEMOGLOBIN 31.3 pg (28.0-32.0); MEAN CORPUSCULAR VOLUME 98.6 fL (80.0-94.0); MEAN PLATELET VOLUME 7.4 fl (7.4-10.4); MONOCYTES % 11.8 % (2.0-8.0); NEUTROPHILS % 75.7 % (40.0-76.0); PLATELET 310 x1000/uL (130-400); RED CELL DISTRIBUTION WIDTH 19.3 % (11.6-14.6)
[2020-05-11 08:14] VITALS: BP 152/74
== END 2020-05-11 14:50 | disposition expired | DRG 871 ==
LOC: ER 10:00 → 7WST 13:10 → ENRESERV 19:36 → 6WST 05-07 16:04
PROVIDERS: ADMIT Internal Medicine; ATTEND Internal Medicine
PROC: 5A1D70Z Performance of Urinary Filtration, Intermittent, Less than 6 Hours Per Day (ICD-10-PCS; 2020-05-06)
PROC: 30233N1 Transfusion of Nonautologous Red Blood Cells into Peripheral Vein, Percutaneous Approach (ICD-10-PCS; 2020-05-07)
PROC: 0W9B3ZZ Drainage of Left Pleural Cavity, Percutaneous Approach (ICD-10-PCS; 2020-05-08)
PROC: 5A1D70Z Performance of Urinary Filtration, Intermittent, Less than 6 Hours Per Day (ICD-10-PCS; 2020-05-08)
PROC: 5A12012 Performance of Cardiac Output, Single, Manual (ICD-10-PCS; principal; 2020-05-11)
PROC: 5A2204Z Restoration of Cardiac Rhythm, Single (ICD-10-PCS; 2020-05-11)
PROC: 0BH17EZ Insertion of Endotracheal Airway into Trachea, Via Natural or Artificial Opening (ICD-10-PCS; 2020-05-11)
PROC: 5A1935Z Respiratory Ventilation, Less than 24 Consecutive Hours (ICD-10-PCS; 2020-05-11)
DX: A41.1 Sepsis due to other specified staphylococcus (principal); E43 Unspecified severe protein-calorie malnutrition; J96.01 Acute respiratory failure with hypoxia; N18.6 End stage renal disease; I13.2 Hypertensive heart and chronic kidney disease with heart failure and with stage 5 chronic kidney disease, or end stage renal disease; I50.22 Chronic systolic (congestive) heart failure; E87.1 Hypo-osmolality and hyponatremia; Z68.1 Body mass index [BMI] 19.9 or less, adult; R18.8 Other ascites; K62.5 Hemorrhage of anus and rectum; J91.8 Pleural effusion in other conditions classified elsewhere; F03.90 Unspecified dementia, unspecified severity, without behavioral disturbance, psychotic disturbance, mood disturbance, and anxiety; G40.909 Epilepsy, unspecified, not intractable, without status epilepticus; E87.6 Hypokalemia; F17.210 Nicotine dependence, cigarettes, uncomplicated; I25.10 Atherosclerotic heart disease of native coronary artery without angina pectoris; K57.30 Diverticulosis of large intestine without perforation or abscess without bleeding; J44.9 Chronic obstructive pulmonary disease, unspecified; D53.9 Nutritional anemia, unspecified; Z20.828 Contact with and (suspected) exposure to other viral communicable diseases; K74.60 Unspecified cirrhosis of liver; R94.4 Abnormal results of kidney function studies; I27.20 Pulmonary hypertension, unspecified; L89.159 Pressure ulcer of sacral region, unspecified stage; Z99.2 Dependence on renal dialysis; Z79.1 Long term (current) use of non-steroidal anti-inflammatories (NSAID); Z79.899 Other long term (current) drug therapy; Z93.1 Gastrostomy status; Z86.74 Personal history of sudden cardiac arrest
CPT/HCPCS: 32555; 36415; 36600; 71045; 71250; 80048; 80053; 80202; 82040; 82140; 82270; 82375; 82805; 82962; 83605; 83615; 83735; 83880; 84100; 84132; 84134; 84155; 84484; 85025; 86850; 86900; 86920; 87077; 87186; 87493; 87635; 88108; 92950; 93005; 99291; J0330; J0456; J0696; J1644; J1650; J1956; J3370; J3490; J7060; P9016; P9047